=== PATIENT | female | born 1990 | race African-American/Black ===

== ENCOUNTER 2017-02-16 23:35 | Emergency (ER) | payer SELFPAY ==
[2017-02-17 00:05] VITALS: BP 108/79
--- NOTE | 2017-02-17 01:22 | ER Document Report ---
ED Hand/Wrist Injury - General Chief Complaint: Finger Injury Stated Complaint: FINGER/HAND SWELLING Time Seen by Provider: 02/17/17 00:45 Mode of Arrival: Ambulatory Information source: Patient Notes: Patient is a 26-year-old black female comes to emergency room complaining of right middle finger pain and discomfort. Patient states her pain discomfort started about 2 days ago and has progressively gotten worse. States that today she went to bed in the throbbing on the middle finger causes her to wake up and she could not go back to sleep. Patient gives history that she does bite her fingernails and has done so ever since she was 5 years old and she has been pulling at her hangnails on that hand as well. She is also use a cuticle cardboard cutter the past. She denies any known injury to this time. Complaint mostly is of the left middle finger tip. And the discomfort and pain seems to surround the tip and the nailbed. TRAVEL OUTSIDE OF THE [place] IN LAST 30 DAYS: No - HPI Injury to: Middle finger Onset: Other - 2 days Where: Other - Unknown Timing: Constant Quality of pain: Sharp, Throbbing Severity: Moderate Pain Level: 3 Context: Other - Denies known trauma but bites fingernails. - Related Data Allergies/Adverse Reactions: No Known Allergies Allergy (Unverified 02/17/17 00:05) Past Medical History - General Information source: Patient Last Menstrual Period: January 24 - Social History Smoking Status: Current Every Day Smoker Cigarette use (# per day): Yes - States she stopped smoking 1 week ago and only does vapor cigarettes curren Smoking Education Provided: Yes Frequency of alcohol use: Rare Drug Abuse: None Occupation: Currently unemployed/medical leave Lives with: Family Family History: None Patient has suicidal ideation: No Patient has homicidal ideation: No - Medical History Medical History: Negative Renal/ Medical History: Denies: Hx Peritoneal Dialysis Review of Systems - Review of Systems Constitutional: No symptoms reported EENT: No symptoms reported Cardiovascular: No symptoms reported Respiratory: No symptoms reported Gastrointestinal: No symptoms reported Genitourinary: No symptoms reported Female Genitourinary: No symptoms reported Musculoskeletal: No symptoms reported Skin: Other - Swelling with edema Hematologic/Lymphatic: No symptoms reported Neurological/Psychological: No symptoms reported -: Yes All other systems reviewed and negative Physical Exam - Vital signs Vitals: Temp Pulse Resp BP Pulse Ox 98.4 F 92 18 108/79 98 02/17/17 00:02 02/17/17 00:02 02/17/17 00:02 02/17/17 00:02 02/17/17 00:02 Interpretation: Normal - General General appearance: Alert - HEENT Head: Normocephalic, Atraumatic - Respiratory Respiratory status: No respiratory distress Breath sounds: Normal Chest palpation: Normal - Cardiovascular Heart sounds: Normal auscultation Murmur: No - Abdominal Inspection: Normal - Extremities General upper extremity: Tender, Edema, Normal ROM, Normal strength, Normal temperature Hand: Tender, No evidence of FB, Other - Examination of patient's right middle finger shows that she has some moderate edema to the distal tip in the pad area. She also has some mild swelling around the inferior portion of the nailbed. Presentation is similar to a paronychia however there is no overt pus that is seen on examination. Patient has tenderness to palpation of the distal tip of the right middle finger she does have good cap refill in the nail bed. She also has full range of motion in all fingers of the right hand. Noted to is a hangnail that is on the lateral side of the nailbed on the distal portion of the right middle finger looks apparently as if she is tried to bite it off. There is some erythema noted increased on that side. - Neurological Neuro grossly intact: Yes Cognition: Normal Orientation: AAOx4 Angier Coma Scale Eye Opening: Spontaneous Angier Coma Scale Verbal: Oriented Murali Coma Scale Motor: Obeys Commands Angier Coma Scale Total: 15 Speech: Normal - Skin Irregularity with: Swelling, Tenderness, Inflammation, Other - See description hand/finger area Course - Re-evaluation Re-evalutation: 02/17/17 01:26 Patient reevaluation shows her to be no change at this time. On examination I found nothing that I could I&D at this time. I have had a long discussion with patient that she should continue to use warm compresses or warm soapy soaks and to quit picking at the areas. I have informed her to return tomorrow for a recheck especially if swelling gets worse. I am given her a shot of Rocephin here and I am giving also oral antibiotics. We are also covering the area with a Band-Aid and applying Neosporin and a finger splint. - Vital Signs Vital signs: Temp Pulse Resp BP Pulse Ox 98.4 F 92 18 108/79 98 02/17/17 00:02 02/17/17 00:02 02/17/17 00:02 02/17/17 00:02 02/17/17 00:02 Procedures - Immobilization Right Distal 3rd digit Pre-Proc Neuro Vasc Exam: Normal Immobilizer type: Finger protection Performed by: PCT Post-Proc Neuro Vasc Exam: Normal Alignment checked and good: Yes Discharge - Discharge Clinical Impression: Cellulitis of left middle finger, Paronychia Condition: Stable Disposition: HOME, SELF-CARE Instructions: Cellulitis ([facility]), Paronychia ([facility]) Additional Instructions: Home rest. Start oral medications as soon as you can. Take all of the antibiotics that are prescribed. As we discussed when to soak the finger in warm water soaks at least 3 times a day. As we discussed if the finger should increase in size or swelling or have any concerns return to ER tomorrow for a recheck. Use the splint for the next couple of days in order to protect it from banging around. Prescriptions: Ibuprofen 600 mg PO TID PRN #30 tablet PRN Reason: Pain swelling Sulfamethoxazole/Trimethoprim [Bactrim Ds Tablet] 1 each PO BID #20 tablet Forms: Elevated Blood Pressure
[2017-02-17] MEDS ORDERED: CEFTRIAXONE INJ 1000 MG VIAL IM ONE (01:29)
[2017-02-17] MEDS ORDERED: HYDROCODONE/ACETAMINOPHEN 5-325 MG TABLET PO ONE (01:30)
[2017-02-17] MEDS ORDERED: LIDOCAINE 1% INJ (10 MG/ML) 10 ML MDV INJ ONE (01:40)
[2017-02-17] MEDS ORDERED: LIDOCAINE 1% INJ-PF (10 MG/ML) 30 ML SDV ONE (01:42)
--- NOTE | 2017-02-17 01:50 | RADIOLOGY REPORT (SQ) ---
EXAM DESCRIPTION: FINGER RIGHT COMPLETED DATE/TIME: 02/17/2017 1:08 am REASON FOR STUDY: rt 3rd digit pain/swelling COMPARISON: None. NUMBER OF VIEWS: Three views. TECHNIQUE: AP, lateral, and oblique images acquired of the right third finger. LIMITATIONS: None. FINDINGS: MINERALIZATION: Normal. BONES: No acute fracture or dislocation. No worrisome bone lesions. SOFT TISSUES: No soft tissue swelling. No foreign body. OTHER: No other significant finding. IMPRESSION: NO RADIOGRAPHIC EVIDENCE OF ACUTE INJURY. COMMENT: SITE OF TRAUMA/COMPLAINT MARKED/STAMP COMPLETED: YES. TECHNICAL DOCUMENTATION: JOB ID: [id number] [employer]- All Rights Reserved
== END 2017-02-17 02:03 | disposition home or self-care (01) ==
LOC: ER 23:35
DX: S69.91XA Unspecified injury of right wrist, hand and finger(s), initial encounter (principal); L03.012 Cellulitis of left finger; X58.XXXA Exposure to other specified factors, initial encounter; F17.200 Nicotine dependence, unspecified, uncomplicated
CPT/HCPCS: 99283; 96372; 73140; J0696

== ENCOUNTER 2017-05-04 16:16 | Emergency (ER) | payer SELFPAY ==
--- NOTE | 2017-05-04 20:51 | ER Document Report ---
HPI - HPI Patient complains to provider of: Headache Onset: Other - 3 days Onset/Duration: Waxing and waning, Gone Severity: Severe Pain Level: 0 Context: Patient presents complaining of headache off and on for the past 3 days. Patient states she has a history of cluster headaches and this is typical of her usual cluster headaches. Patient states that she will typically have the headaches for about 3 hours and then the symptoms will resolve for anywhere from 30 minutes to a few hours. Patient does report vomiting 2 episodes today which prompted her visit today. Patient states that she was at work and requires a note for her employer. Patient denies any fever, head injury, neck or back pain. Patient has not gotten established with a neurologist here in town. Patient states that she has used sumatriptan in the past to help her symptoms but does not have any at home at this time. Patient presently denies any headache pain at this time. Associated Symptoms: Headache, Nausea, Vomiting Exacerbated by: Denies Relieved by: Denies Similar symptoms previously: Yes Recently seen / treated by doctor: No - ROS ROS below otherwise negative: Yes Systems Reviewed and Negative: Yes All other systems reviewed and negative - CONSTITUTIONAL Constitutional: DENIES: Fever, Chills - NEURO Neurology: REPORTS: Headache. DENIES: Weakness, Vision blurred - GASTROINTESTINAL Gastrointestinal: REPORTS: Nausea, Patient vomiting. 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 IN LAST 30 DAYS: No - HEENT HEENT: Atraumatic, Normal ENT Exam, Normocephalic - NECK Neck: Normal Inspection, Supple Notes: No meningismus - RESPIRATORY Respiratory: Breath Sounds Normal, No Respiratory Distress O2 Sat by Pulse Oximetry: 100 - CARDIOVASCULAR Cardiovascular: Regular Rate, Regular Rhythm, No Murmur - BACK Back: Normal Inspection Notes: No spinal midline tenderness - MUSCULOSKELETAL/EXTREMETIES Musculoskeletal/Extremeties: CHRISTIAN ROMERO - NEURO Level of Consciousness: Awake, Alert, Appropriate Motor/Sensory: No Motor Deficit - DERM Integumentary: Warm, Dry, No Rash Course - Re-evaluation Re-evalutation: 05/04/17 20:[address] Wright regarding patient presentation, advises discharging patient with sumatriptan as this has worked for her in the past. The patient presents with headache without signs of SOLE LEVELER bleed, stroke, infection , or other serious etiology. The patient is neurologically intact. Given the extremely low risk of these diagnoses further testing and evaluation for these possibilities does not appear to be indicated at this time. The patient has been instructed to return if the symptoms worsen or change in any way. - Vital Signs Vital signs: Temp Pulse Resp BP Pulse Ox 98.7 F 57 L 14 115/64 100 05/04/17 16:19 05/04/17 16:19 05/04/17 16:19 05/04/17 16:19 05/04/17 16:19 Discharge - Discharge Clinical Impression: History of cluster headache, Nausea Condition: Stable Disposition: HOME, SELF-CARE Instructions: Antinausea Medication ([facility]), Headache ([facility]) Additional Instructions: Return immediately for any new or worsening symptoms Followup with your primary care provider, call tomorrow to make a followup appointment Follow-up with a neurologist for further evaluation. Prescriptions: Promethazine HCl [Phenergan 25 mg Tablet] 25 mg PO Q6H PRN #12 tablet PRN Reason: Sumatriptan Succinate 50 mg PO ASDIR PRN #4 tablet PRN Reason: Forms: Smoking Cessation Education, Return to Work Referrals: DIAN MOSLEY MD [Primary Care Provider] - Follow up tomorrow
[2017-05-04 20:58] VITALS: BP 107/67
== END 2017-05-04 20:58 | disposition home or self-care (01) ==
LOC: ER 16:16
DX: R51 Headache (principal); R11.2 Nausea with vomiting, unspecified; F17.200 Nicotine dependence, unspecified, uncomplicated
CPT/HCPCS: 99283

== ENCOUNTER 2018-03-24 19:06 | Emergency (ER) | payer OTHER, BC ==
[2018-03-24 19:13] VITALS: BP 114/68
[2018-03-24] MEDS ORDERED: DEXAMETHASONE SOD PHOS INJ 10 MG/1 ML VIAL IM ONE (19:26)
--- NOTE | 2018-03-24 19:27 | ER Document Report ---
ED General - General Chief Complaint: Allergic Reaction Stated Complaint: ALLERGIC REACTION Time Seen by Provider: 03/24/18 19:17 Notes: Patient is a 27-year-old female that presents to the emergency department for chief complaint of allergic reaction. Patient states that about 1 hour ago she ate a chicken taco, she thinks may have been cooked in peanut oil, she has a severe peanut allergy, she had some throat tingling, and abdominal pain initially, she took 2 Benadryl, at that time, her symptoms for her have essentially completely resolved, she does not feel any tongue swelling or throat swelling or throat itching. Denies having any shortness of breath or difficulty breathing, she has mild cramping in her abdomen, but denies having any rashes or any other symptoms. She is very familiar with anaphylaxis, she does carry an EpiPen, and has been dealing with allergies her entire life, and states that she feels very well at this time, and is not concerned that she is going through a severe reaction. She denies any other complaints at this time. Past Medical History: Significant environmental allergies Past Surgical History: Appendectomy Social History: Admits to smoking cigarettes daily, and occasional alcohol use, denies illicit drug use. Family History: Reviewed and noncontributory for presenting illness Allergies: Reviewed, see documented allergy list. REVIEW OF SYSTEMS: Other than noted above, the 12 point review of systems was reviewed with the patient and were negative, all pertinent findings are included in the HPI. PHYSICAL EXAMINATION: Vital signs reviewed, nursing noted reviewed. GENERAL: Well-appearing, well-nourished and in no acute distress. HEAD: Atraumatic, normocephalic. EYES: Eyes appear normal, extraocular movements intact, sclera anicteric, conjunctiva are normal. ENT: nares patent, oropharynx clear without exudates. Moist mucous membranes. No uvular edema, uvula is midline, no tongue edema appreciated. NECK: Normal range of motion, supple without lymphadenopathy LUNGS: Breath sounds clear to auscultation bilaterally and equal. No wheezes rales or rhonchi. HEART: Regular rate and rhythm without murmurs ABDOMEN: Soft, nontender, normoactive bowel sounds. No rebound, guarding, or rigidity. No masses appreciated. EXTREMITIES: Nontender, good range of motion, no pitting or edema. NEUROLOGICAL: No focal neurological deficits. Moves all extremities spontaneously Motor and sensory grossly intact on exam. PSYCH: Normal mood, normal affect. SKIN: Warm, Dry, normal turgor, no rashes or lesions noted on exposed skin TRAVEL OUTSIDE OF THE [place] IN LAST 30 DAYS: No - Related Data Allergies/Adverse Reactions: tree nut Allergy (Verified 03/24/18 19:19) PEANUT BUTTER Allergy (Uncoded 05/04/17 16:17) Past Medical History - Social History Smoking Status: Current Every Day Smoker Chew tobacco use (# tins/day): No Frequency of alcohol use: Social Drug Abuse: None Family History: None Patient has suicidal ideation: No Patient has homicidal ideation: No Neurological Medical History: Reports: Hx Migraine - cluster cifuentes Renal/ Medical History: Denies: Hx Peritoneal Dialysis Psychiatric Medical History: Reports: Hx Bipolar Disorder, Hx Depression Past Surgical History: Reports: Hx Appendectomy Physical Exam - Vital signs Vitals: Temp Pulse Resp BP Pulse Ox 98.5 F 57 L 16 114/68 97 03/24/18 19:12 03/24/18 19:12 03/24/18 19:12 03/24/18 19:12 03/24/18 19:12 Course - Re-evaluation Re-evalutation: Patient appears well on exam, no acute evidence of anaphylaxis at this time, patient received Benadryl naproxen 1 hour ago and after ingestion of possible peanut oil, patient is seemingly doing quite well, she did not have to use her EpiPen, she states that she knows how she feels when she has a severe reaction, and she feels quite well does not believe that is occurring at this time. Patient was given 10 mg of IM Decadron, and advised to take Benadryl when she gets home. She is advised to monitor her symptoms, for possible delayed anaphylaxis, and if her symptoms worsen or return in the next hour or more even tomorrow that she should use her EpiPen if they became severe and to return to the emergency department, patient was agreeable to this plan of care. - Vital Signs Vital signs: Temp Pulse Resp BP Pulse Ox 98.5 F 57 L 16 114/68 97 03/24/18 19:12 03/24/18 19:12 03/24/18 19:12 03/24/18 19:12 03/24/18 19:12 Discharge - Discharge Clinical Impression: Allergic reaction Qualifiers: Encounter type: initial encounter Qualified Code(s): T78.40XA - Allergy, unspecified, initial encounter Condition: Stable Disposition: HOME, SELF-CARE Instructions: Acute Allergic Reaction ([facility]) Additional Instructions: Please take 50 mg of Benadryl when you get home before you go to bed, if he develops signs of difficulty breathing, or feel lightheaded or like you are going to pass out or have vomiting or severe abdominal pain or throat swelling please return to the emergency department. Referrals: DIAN MOSLEY MD [ACTIVE STAFF] - Follow up in 3-5 days
== END 2018-03-24 19:45 | disposition home or self-care (01) ==
LOC: ER 19:06
DX: T78.40XA Allergy, unspecified, initial encounter (principal); R09.89 Other specified symptoms and signs involving the circulatory and respiratory systems; R10.9 Unspecified abdominal pain; X58.XXXA Exposure to other specified factors, initial encounter; F17.210 Nicotine dependence, cigarettes, uncomplicated; Z91.040 Latex allergy status; Z91.018 Allergy to other foods
CPT/HCPCS: 99283; 96372; J1100

== ENCOUNTER 2018-07-28 22:18 | Emergency (ER) | payer BC ==
[2018-07-29 00:19] LABS: APPEARANCE,URINE CLEAR; BILIRUBIN,URINE NEGATIVE (NEGATIVE); COLOR,URINE YELLOW; GLUCOSE, URINE NEGATIVE (NEGATIVE); KETONES,URINE NEGATIVE (NEGATIVE); LEUKOCYTE ESTERASE,URINE NEGATIVE (NEGATIVE); NITRITE,URINE NEGATIVE (NEGATIVE); PROTEIN,URINE 30 mg/dL (NEGATIVE); URINE SPECIFIC GRAVITY 1.032
[2018-07-29 01:21] LABS: ALANINE AMINOTRANSFERASE 21 U/L (9-52); ALBUMIN 4.1 g/dL (3.5-5.0); ALKALINE PHOSPHATASE 62 U/L (38-126); ANION GAP 6 (5-19); ASPARTATE AMINO TRANSFERASE 21 U/L (14-36); BILIRUBIN,DIRECT 0.2 mg/dL (0.0-0.4); BILIRUBIN,TOTAL 0.5 mg/dL (0.2-1.3); BLOOD UREA NITROGEN 18 mg/dL (7-20); CALCIUM 9.8 mg/dL (8.4-10.2); CARBON DIOXIDE 29 mmol/L (22-30); CHLORIDE 107 mmol/L (98-107); GLUCOSE 91 mg/dL (75-110); POTASSIUM 4.1 mmol/L (3.6-5.0); TOTAL PROTEIN 7.2 g/dL (6.3-8.2)
[2018-07-29 01:28] LABS: ABSOLUTE BASOPHILS # (AUTO) 0.1 10^3/uL (0.0-0.2); ABSOLUTE EOSINOPHILS # (AUTO) 0.4 10^3/uL (0.0-0.6); ABSOLUTE LYMPHOCYTES (AUTO) 4.1 10^3/uL (0.5-4.7); ABSOLUTE MONOCYTES (AUTO) 0.5 10^3/uL (0.1-1.4); ABSOLUTE NEUT (AUTO) 3.3 10^3/uL (1.7-8.2); BASOPHILS % (AUTO) 1.2 % (0-2); HEMATOCRIT 37.6 % (36.0-47.0); HEMOGLOBIN 12.6 g/dL (12.0-15.5); LYMPHOCYTES % (AUTO) 48.5 % (13-45); MEAN CORPUSCULAR HEMOGLOBIN 28.6 pg (27.0-33.4); MEAN CORPUSCULAR HGB CONC 33.4 g/dL (32.0-36.0); MEAN CORPUSCULAR VOLUME 86 fl (80-97); MONOCYTES % (AUTO) 6.2 % (3-13); PLATELET COUNT 361 10^3/uL (150-450); RED CELL DISTRIBUTION WIDTH 13.5 % (11.5-14.0); SEGMENTED NEUTROPHILS % (AUTO) 39.1 % (42-78); TOTAL CELLS COUNTED % (AUTO) 100 %; WHITE BLOOD COUNT 8.4 10^3/uL (4.0-10.5)
[2018-07-29] MEDS ORDERED: ACETAMINOPHEN 325 MG TABLET PO ONE (01:31)
[2018-07-29] MEDS ORDERED: KETOROLAC TROMETHAMINE 60 MG/2 ML SDV IM ONE (01:31)
--- NOTE | 2018-07-29 01:31 | ER Document Report ---
ED General - General Chief Complaint: Abdominal Pain Stated Complaint: LOWER PELVIC PAIN Time Seen by Provider: 07/28/18 23:26 Notes: Patient is a 28-year-old female without chronic medical problems, prior surgical history of an appendectomy presents due to several weeks of progressively worsening pain in her lower pelvis although has become much more intense in the past several days. Patient describes the pain as being gradual in onset, i ntermittent in its intensity ranging from mild to severe and as being a cramping, stabbing pain generally to just above the pubis symphysis. Denies history of similar symptoms in the past. Has had some associated vaginal spotting but denies heavy vaginal bleeding or vaginal discharge. She denies fever or constitutional symptoms. She has not seen her [facility] regarding today's concerns. Denies a history of similar symptoms prior to the past several weeks. TRAVEL OUTSIDE OF THE [place] IN LAST 30 DAYS: No - Related Data Allergies/Adverse Reactions: tree nut Allergy (Verified 07/28/18 22:22) PEANUT BUTTER Allergy (Uncoded 07/28/18 22:22) Past Medical History - General Information source: Patient - Social History Smoking Status: Never Smoker Frequency of alcohol use: None Drug Abuse: None Lives with: Family Family History: Reviewed & Not Pertinent Neurological Medical History: Reports: Hx Migraine - cluster cifuentes Renal/ Medical History: Denies: Hx Peritoneal Dialysis Psychiatric Medical History: Reports: Hx Bipolar Disorder, Hx Depression Past Surgical History: Reports: Hx Appendectomy Review of Systems - Review of Systems Notes: Constitutional: Negative for fever. HENT: Negative for sore throat. Eyes: Negative for visual changes. Cardiovascular: Negative for chest pain. Respiratory: Negative for shortness of breath. Gastrointestinal: Positive for abdominal pelvic cramping Genitourinary: Negative for dysuria. Musculoskeletal: Negative for back pain. Skin: Negative for rash. Neurological: Negative for headaches, weakness or numbness. 10 point ROS negative except as marked above and in HPI. Physical Exam - Vital signs Vitals: Temp Pulse Resp BP Pulse Ox 98.4 F 65 16 102/65 97 07/28/18 22:30 07/28/18 22:30 07/28/18 22:30 07/28/18 22:30 07/28/18 22:30 Interpretation: Normal Notes: PHYSICAL EXAMINATION: GENERAL: Well-appearing, well-nourished and in no acute distress. HEAD: Atraumatic, normocephalic. EYES: Pupils equal round and reactive to light, extraocular movements intact, sclera anicteric, conjunctiva are normal. ENT: nares patent, oropharynx clear without exudates. Moist mucous membranes. NECK: Normal range of motion, supple without lymphadenopathy LUNGS: Breath sounds clear to auscultation bilaterally and equal. No wheezes rales or rhonchi. HEART: Regular rate and rhythm without murmurs ABDOMEN: Soft, nontender, normoactive bowel sounds. No guarding, no rebound. No masses appreciated. : Minimal visible strings from IUD. Scant discharge from the cervical office. No cervical motion tenderness. No adnexal tenderness. Mild to pubic abdominal discomfort. EXTREMITIES: Normal range of motion, no pitting or edema. No cyanosis. NEUROLOGICAL: No focal neurological deficits. Moves all extremities spontaneously and on command. PSYCH: Normal mood, normal affect. SKIN: Warm, Dry, normal turgor, no rashes or lesions noted. Course - Re-evaluation Re-evalutation: 07/29/18 01:28 Patient presents with lower abdominal discomfort for the past 4-5 days although notes that it has been ongoing for several weeks. On exam patient has no focal abdominal tenderness, rebound or guarding. On pelvic exam the patient has a very short IUD strings with almost no visible string at the cervical office. The patient did request IUD removal which was completed without difficulty. Patient did have significant relief of her discomfort thereafter. She did have some mild vaginal discharge. Gonorrhea and Chlamydia screens are pending. Exam not consistent with pelvic inflammatory disease or TOA. No indication for ultrasound. Labs otherwise unremarkable. At this time will discharge with return precautions and follow-up recommendations. Verbal discharge instructions given a the bedside and opportunity for questions given. Medication warnings reviewed. Patient is in agreement with this plan and has verbalized understanding of return precautions and the need for primary care follow-up in the next 24-72 hours. - Vital Signs Vital signs: Temp Pulse Resp BP Pulse Ox 98.4 F 65 16 102/65 97 07/28/18 22:30 07/28/18 22:30 07/28/18 22:30 07/28/18 22:30 07/28/18 22:30 - Laboratory Result Diagrams: 07/29/18 00:55 07/29/18 00:55 Laboratory results interpreted by me: 07/28/18 23:35 Urine Protein 30 H Urine Urobilinogen 4.0 H Discharge - Discharge Clinical Impression: Pelvic pain, Encounter for IUD removal Pain due to intrauterine contraceptive device (IUD) Qualifiers: Encounter type: initial encounter Qualified Code(s): T83.84XA - Pain due to genitourinary prosthetic devices, implants and grafts, initial encounter Condition: Good Disposition: HOME, SELF-CARE Additional Instructions: Please return to emergency department if you have worsening pain, fever greater than 100.4 F, vomiting, bleeding through more than 2 pads an hour for more than 2 hours in a row, of heavy vaginal discharge, or develop any other symptoms that are worrisome to you. Please follow-up with [facility] regarding today's visit. Forms: Return to Work
[2018-07-29 01:46] LABS: RBCS (WET MOUNT) NO RBCS SEEN; T.VAGINALIS (WET MOUNT) NO TRICHOMONAS SEEN; WBCS (WET MOUNT) NO WBCS SEEN; YEAST (WET MOUNT) NO YEAST SEEN
[2018-07-29 01:51] VITALS: BP 98/62
[2018-07-29 03:12] LABS: CHLAM PCR NOT DETECTED (NOT DETECT); GON PCR NOT DETECTED (NOT DETECT)
== END 2018-07-29 01:52 | disposition home or self-care (01) ==
LOC: ER 22:18
DX: R10.2 Pelvic and perineal pain (principal); T83.84XA Pain due to genitourinary prosthetic devices, implants and grafts, initial encounter; X58.XXXA Exposure to other specified factors, initial encounter; Z91.010 Allergy to peanuts
CPT/HCPCS: 99284; 96372; 36415; 87210; 85025; 81025; 80053; 81001; 87491; 87591; J1885

== ENCOUNTER 2019-06-05 16:26 | Outpatient (CLI) | payer MEDICAID ==
--- NOTE | 2019-06-05 19:32 | Non Stress Test Report ---
Non Stress Test Datetime Report Generated by CPN: 06/05/2019 19:32 DEMOGRAPHIC EGA NST: 35.0 MONITORING Monitor Explained: Monitor Explained; Test Explained; Patient Verbalized Understanding Time on Monitor: 06/05/2019 16:50 Time off Monitor: 06/05/2019 17:24 NST Duration: 34 NST INTERVENTIONS NST Interventions: PO Hydration; Reposition Patient Physician Notified NST: Dr Echols BABY A: [id number] BABY A Movement : Present Contraction Frequency : occasional FHR Baseline : 145 Accelerations : 15X15 Decelerations : None Variability : Moderate 6-25bpm NST Review: Meets Criteria for Reactive NST NST Review and Verified By : JORGE Taylor Results: Reactive NST REPORT Report Trigger: Send Report
== END 2019-06-05 17:30 | disposition home or self-care (01) ==
LOC: LC 16:26
PROVIDERS: ATTEND Obstetrics & Gynecology
PROC: 4A1HXCZ Monitoring of Products of Conception, Cardiac Rate, External Approach (ICD-10-PCS; principal; 2019-06-05)
DX: O24.419 Gestational diabetes mellitus in pregnancy, unspecified control (principal); Z3A.35 35 weeks gestation of pregnancy
CPT/HCPCS: 59025

== ENCOUNTER 2019-06-09 16:13 | Inpatient (IN) | payer MEDICAID ==
[2019-06-09 16:50] LABS: APPEARANCE,URINE CLOUDY; BILIRUBIN,URINE NEGATIVE (NEGATIVE); COLOR,URINE AMBER; GLUCOSE, URINE NEGATIVE (NEGATIVE); KETONES,URINE 80 mg/dL (NEGATIVE); LEUKOCYTE ESTERASE,URINE TRACE (NEGATIVE); NITRITE,URINE NEGATIVE (NEGATIVE); PROTEIN,URINE 100 mg/dL (NEGATIVE); URINE SPECIFIC GRAVITY 1.034
[2019-06-09] MEDS ORDERED: RINGERS SOLUTION,LACTATED 1,000 ML IV ONE ×2 (17:05→18:01)
[2019-06-09] MEDS ORDERED: RINGERS SOLUTION,LACTATED 1,000 ML IV PRN ×2 (17:05→18:02)
[2019-06-09] MEDS ORDERED: ONDANSETRON HCL INJ/PF 4 MG/2 ML SDV IV PRN (17:14)
[2019-06-09 17:16] LABS: ABSOLUTE EOSINOPHILS # (AUTO) 0.1 10^3/uL (0.0-0.6); ABSOLUTE LYMPHOCYTES (AUTO) 0.5 10^3/uL (0.5-4.7); ABSOLUTE MONOCYTES (AUTO) 0.4 10^3/uL (0.1-1.4); ABSOLUTE NEUT (AUTO) 7.6 10^3/uL (1.7-8.2); BASOPHILS % (AUTO) 0.4 % (0-2); EOSINOPHILS % (AUTO) 1.3 % (0-6); HEMATOCRIT 32.3 % (36.0-47.0); HEMOGLOBIN 10.9 g/dL (12.0-15.5); LYMPHOCYTES % (AUTO) 6.1 % (13-45); MEAN CORPUSCULAR HEMOGLOBIN 27.1 pg (27.0-33.4); MEAN CORPUSCULAR HGB CONC 33.6 g/dL (32.0-36.0); MEAN CORPUSCULAR VOLUME 81 fl (80-97); MONOCYTES % (AUTO) 4.2 % (3-13); PLATELET COUNT 333 10^3/uL (150-450); RED CELL DISTRIBUTION WIDTH 14.6 % (11.5-14.0); TOTAL CELLS COUNTED % (AUTO) 100 %; WHITE BLOOD COUNT 8.6 10^3/uL (4.0-10.5)
[2019-06-09] MEDS ORDERED: CEFTRIAXONE INJ 1000 MG VIAL ONE (17:16)
[2019-06-09] MEDS ORDERED: ACETAMINOPHEN 325 MG TABLET ONE ×2 (17:16→23:31)
[2019-06-09] MEDS ORDERED: ONDANSETRON HCL INJ/PF 4 MG/2 ML SDV ONE ×2 (17:17→20:26)
[2019-06-09 17:23] LABS: URINE AMPHETAMINES SCREEN NEGATIVE; URINE BARBITURATES SCREEN NEGATIVE; URINE BENZODIAZEPINES SCREEN NEGATIVE; URINE COCAINE SCREEN NEGATIVE; URINE MARIJUANA (THC) SCREEN NEGATIVE; URINE METHADONE SCREEN NEGATIVE; URINE PHENCYCLIDINE SCREEN NEGATIVE
[2019-06-09 17:38] LABS: A TYPE INFLUENZA AG POSITIVE (NEGATIVE); B INFLUENZA AG NEGATIVE (NEGATIVE)
[2019-06-09 17:38] LABS: ALBUMIN 3.6 g/dL (3.5-5.0); ALKALINE PHOSPHATASE 241 U/L (38-126); ANION GAP 9 (5-19); ASPARTATE AMINO TRANSFERASE 22 U/L (14-36); BILIRUBIN,TOTAL 0.6 mg/dL (0.2-1.3); BLOOD UREA NITROGEN 6 mg/dL (7-20); CALCIUM 8.8 mg/dL (8.4-10.2); CARBON DIOXIDE 21 mmol/L (22-30); CHLORIDE 103 mmol/L (98-107); GLUCOSE 82 mg/dL (75-110); TOTAL PROTEIN 6.8 g/dL (6.3-8.2)
--- NOTE | 2019-06-09 17:55 | RADIOLOGY REPORT (SQ) ---
EXAM DESCRIPTION: CHEST SINGLE VIEW COMPLETED DATE/TIME: 06/09/2019 5:44 pm REASON FOR STUDY: SOB, cough COMPARISON: None. EXAM PARAMETERS: NUMBER OF VIEWS: One view. TECHNIQUE: Single frontal radiographic view of the chest acquired. RADIATION DOSE: NA LIMITATIONS: None. FINDINGS: LUNGS AND PLEURA: No opacities, masses or pneumothorax. No pleural effusion. MEDIASTINUM AND HILAR STRUCTURES: No masses. Contour normal. HEART AND VASCULAR STRUCTURES: Heart normal in size. Normal vasculature. BONES: No acute findings. HARDWARE: None in the chest. OTHER: No other significant finding. IMPRESSION: NO ACUTE RADIOGRAPHIC FINDING IN THE CHEST. TECHNICAL DOCUMENTATION: JOB ID: [id number] [employer]- All Rights Reserved Reading location - IP/workstation name: [employer]
[2019-06-09] MEDS ORDERED: DEXTROSE 50%-WATER 25 GM/50 ML DISP.SYRIN IV PRN ×2 (18:00)
[2019-06-09] MEDS ORDERED: DEXTROSE 40% GEL 15 GM TUBE PO PRN ×2 (18:00)
[2019-06-09] MEDS ORDERED: GLUCAGON,HUMAN RECOMB 1 MG INJ IM PRN (18:00)
[2019-06-09] MEDS ORDERED: LEVALBUTEROL HCL NEB 1.25 MG/3 ML AMPUL NEB PRN (18:09)
[2019-06-09] MEDS ORDERED: GUAIFENESIN SYRP 200 MG/10 ML UDC PO PRN (18:11)
[2019-06-09 18:19] LABS: CHLAM PCR NOT DETECTED (NOT DETECT)
[2019-06-09] MEDS: ACETAMINOPHEN 325 MG TABLET PO SCH ×2 (18:36→23:33)
[2019-06-09] MEDS: CEFTRIAXONE 1 GM/D5W RTU 1 GM/50 ML RTUPB IV SCH (18:36)
[2019-06-09] MEDS ORDERED: FAMOTIDINE 20 MG TABLET ONE (18:49)
[2019-06-09] MEDS: FAMOTIDINE 20 MG TABLET PO SCH ×2 (18:50→22:03)
--- NOTE | 2019-06-09 18:53 | PDOC CONSULTATION ---
Consultation Consult Date: 06/09/19 Attending physician:: FRANNY RIVAS Provider Consulted: KAVON HARMON Consult reason:: Flu symptoms History of Present Illness Admission Date/PCP: FRANNY RIVAS MD Patient complains of: Fever, shortness of breath History of Present Illness: JENN BELLAMY is a 29 year old female with a past medical history significant for depression, bipolar, gestational diabetes, who is and approximately 34 weeks EGA who presented with complaint of 1 day of generalized malaise, fatigue, myalgia, pleuritic chest pain on deep inspiration and cough, productive cough, subjective fever/chills, and shortness of breath. She reports onset of nausea and vomiting today; has not been able to tolerate p.o. fluids. Of note, 1 of her immediate family members tested flu positive this week. Evaluation found the patient to be acutely ill-appearing, febrile (100.9), tachycardic (HR 120), tachypneic (RR 28), but fortunately with unremarkable CBC other than mild anemia, dehydration (mild hyponatremia, elevated bicarb, elevated specific gravity with urine protein, ketones), UDS is negative, Influenza A positive. Chest x-ray is read as negative for acute findings. On personal review, I am concerned about a possible developing consolidation to the right middle lobe. Patient is admitted to the SECRETARY SPECIALIST service with the hospitalist service consulted to assist. Past Medical History Cardiac Medical History: Reports: None Pulmonary Medical History: Reports: None EENT Medical History: Reports: None Neurological Medical History: Reports: Migraine - cluster cifuentes Endocrine Medical History: Reports: None Renal/ Medical History: Reports: None Malignancy Medical History: Reports: None GI Medical History: Reports: None Musculoskeltal Medical History: Reports: None Psychiatric Medical History: Reports: Bipolar Disorder, Depression Traumatic Medical History: Reports: None Hematology: Reports: None Past Surgical History Past Surgical History: Reports: Appendectomy Social History Information Source: Patient Lives with: Family Smoking Status: Never Smoker Electronic Cigarette use?: No Frequency of Alcohol Use: None Hx Recreational Drug Use: No Hx Prescription Drug Abuse: No - Advance Directive Resuscitation Status: Full Code Family History Family History: Reviewed & Not Pertinent Parental Family History Reviewed: Yes Children Family History Reviewed: Yes Sibling(s) Family History Reviewed.: Yes Medication/Allergy Home Medications: Lurasidone HCl [Latuda] 20 mg PO DAILY 06/05/19 Vit/Dha [ Multi + Dha Capsule] 1 cap PO DAILY 06/05/19 Sertraline HCl [Zoloft 50 mg Tablet] 50 mg PO DAILY 06/05/19 Allergies/Adverse Reactions: tree nut Allergy (Verified 06/05/19 19:35) PEANUT BUTTER Allergy (Uncoded 06/05/19 19:35) Review of Systems Constitutional: PRESENT: chills, fatigue, fever(s), headache(s). ABSENT: weight gain, weight loss Eyes: ABSENT: visual disturbances Ears: ABSENT: hearing changes Cardiovascular: ABSENT: chest pain, dyspnea on exertion, edema, orthropnea, palpitations Respiratory: PRESENT: cough, dyspnea, sputum. ABSENT: hemoptysis Gastrointestinal: PRESENT: nausea, vomiting. ABSENT: abdominal pain, constipation, diarrhea, hematemesis, hematochezia Genitourinary: ABSENT: dysuria, hematuria Musculoskeletal: ABSENT: joint swelling Integumentary: ABSENT: rash, wounds Neurological: ABSENT: abnormal gait, abnormal speech, confusion, dizziness, focal weakness, syncope Psychiatric: ABSENT: anxiety, depression, homidical ideation, suicidal ideation Endocrine: ABSENT: cold intolerance, heat intolerance, polydipsia, polyuria Hematologic/Lymphatic: ABSENT: easy bleeding, easy bruising Physical Exam General appearance: PRESENT: mild distress, well-developed, well-nourished, other - Acutely ill-appearing Head exam: PRESENT: atraumatic, normocephalic Eye exam: PRESENT: conjunctiva pink, EOMI, PERRLA. ABSENT: scleral icterus Ear exam: PRESENT: normal external ear exam Mouth exam: PRESENT: dry mucosa, tongue midline Respiratory exam: PRESENT: rhonchi, symmetrical, tachypnea, unlabored. ABSENT: rales, wheezes Cardiovascular exam: PRESENT: RRR, +S1, +S2, tachycardia - HR 120-130. ABSENT: diastolic murmur, rubs, systolic murmur Pulses: PRESENT: normal dorsalis pedis pul Vascular exam: PRESENT: normal capillary refill Extremities exam: PRESENT: full ROM. ABSENT: calf tenderness, clubbing, pedal edema Musculoskeletal exam: PRESENT: ambulatory Neurological exam: PRESENT: alert, awake, oriented to person, oriented to place, oriented to time, oriented to situation, CN II-XII grossly intact. ABSENT: mo tor sensory deficit Psychiatric exam: PRESENT: appropriate affect, normal mood. ABSENT: homicidal ideation, suicidal ideation Skin exam: PRESENT: dry, intact, warm, other - Diaphoretic. ABSENT: cyanosis, rash Results Laboratory Results: 06/09/19 17:08 06/09/19 06/09/19 16:40 17:08 WBC 8.6 RBC 4.00 Hgb 10.9 L Hct 32.3 L MCV 81 MCH 27.1 MCHC 33.6 RDW 14.6 H Plt Count 333 Seg Neutrophils % 88.0 H Urine Color LARISA Urine Appearance CLOUDY Urine pH 7.0 Ur Specific [place] 1.034 Urine Protein 100 H Urine Glucose (UA) NEGATIVE Urine Ketones 80 H Urine Blood NEGATIVE Urine Nitrite NEGATIVE Ur Leukocyte Esterase TRACE H Assessment and Plan - Diagnosis (1) Respiratory distress Is this a current diagnosis for this admission?: Yes Plan: Secondary to influenza A. Chest x-ray is read as negative for acute cardiopulmonary processes; a personal review, I am concerned about possibly developing right middle lobe consolidation. She is tachypneic with a respiratory rate 28-32, maintaining oxygen saturations in the mid 90s, with increased work of breathing and tachycardia. Admitted to the SECRETARY SPECIALIST service. Supplemental oxygen as needed to maintain saturations greater than 93%. She is empirically placed on IV azithromycin and Rocephin for treatment of a possible developing community-acquired pneumonia in the setting of influenza. Tamiflu for influenza. As needed nebulizer treatments. Robitussin as needed. Encourage pulmonary toilet with incentive spirometer and change of position. (2) Influenza A Is this a current diagnosis for this admission?: Yes Plan: Patient is admitted to the SECRETARY SPECIALIST service. Continue Tamiflu twice daily. Symptom management with supportive care; IV fluids, supplemental oxygen, as needed nebulizers, Robitussin. (3) Dehydration Is this a current diagnosis for this admission?: Yes Plan: Patient demonstrates evidence of dehydration with tachypnea, tachycardia, and dry mucous membranes. She is found to have Mild hyponatremia and an elevated bicarb. She has a high specific gravity, elevated bicarb, and high urine specific gravity with urine protein and ketones. She is provided a 2 L bolus (30 mL's per kilogram) followed by maintenance IV fluids. Encourage p.o. fluids. Follow-up chemistry. (4) Tachycardia Is this a current diagnosis for this admission?: Yes Plan: Secondary to #1-3. Patient's tachycardia appears to be trending downward with IV fluids. Discussed with Dr. Rivas; should the patient remain significantly tachycardic (heart rate >120s) following the 2nd L bolus, would recommend the patient be moved to a floor where telemetry monitoring for the mother is available. EKG is pending. (5) Nausea and vomiting Qualifiers: Vomiting Intractability: non-intractable Is this a current diagnosis for this admission?: Yes Plan: Secondary to acute illness. We will rehydrate with IV fluids. Antiemetics as needed. (6) Gestational diabetes Qualifiers: Gestational diabetes mellitus control: oral hypoglycemic-controlled Trimester: third trimester Qualified Code(s): O24.415 - Gestational diabetes mellitus in , controlled by oral hypoglycemic drugs Is this a current diagnosis for this admission?: Yes Plan: Patient utilizes glipizide for management at home. Recommend holding oral antihyperglycemic's while admitted. She is placed on a consistent carb diet. Accu-Cheks before meals and at bedtime with Humalog for sliding scale coverage. (7) tachycardia affecting management of mother Is this a current diagnosis for this admission?: Yes Plan: Management per SECRETARY SPECIALIST. IV fluids as above. - Time Time Spent with patient: 35 or more minutes Medications reviewed and adjusted accordingly: Yes Anticipated discharge: Home
[2019-06-09] MEDS ORDERED: AZITHROMYCIN INJ 500 MG VIAL IV ONE (19:09)
[2019-06-09] MEDS ORDERED: OSELTAMIVIR PHOSPHATE 75 MG CAPSULE ONE (19:33)
[2019-06-09] MEDS ORDERED: LIDOCAINE 5% (700 MG) TRANSDERMAL ADH..PATCH ONE (19:33)
[2019-06-09] MEDS: OSELTAMIVIR PHOSPHATE 75 MG CAPSULE PO SCH (19:36)
[2019-06-09] MEDS: LIDOCAINE 5% (700 MG) TRANSDERMAL ADH..PATCH TP SCH (19:36)
[2019-06-09] MEDS: AZITHROMYCIN 500 MG in DEXTROSE 5%-WATER 250 ML IV SCH (20:03)
[2019-06-09] MEDS ORDERED: HYDROMORPHONE HCL INJ/PF 2 MG/ML AMPULE IV ONE (20:11)
[2019-06-09] MEDS ORDERED: HYDROMORPHONE HCL INJ/PF 2 MG/ML AMPULE ONE (20:26)
[2019-06-09 20:27] LABS: APPEARANCE,URINE CLEAR; BILIRUBIN,URINE NEGATIVE (NEGATIVE); COLOR,URINE YELLOW; GLUCOSE, URINE NEGATIVE (NEGATIVE); KETONES,URINE 80 mg/dL (NEGATIVE); LEUKOCYTE ESTERASE,URINE NEGATIVE (NEGATIVE); NITRITE,URINE NEGATIVE (NEGATIVE); PROTEIN,URINE 30 mg/dL (NEGATIVE)
--- NOTE | 2019-06-09 21:17 | EKG REPORT ---
SEVERITY:- ABNORMAL ECG - SINUS TACHYCARDIA NONSPECIFIC T ABNORMALITIES, INFERIOR LEADS : Confirmed by: Musa Pace MD 09-Jun-2019 21:16:50
[2019-06-09] MEDS: INSULIN LISPRO 100 UNIT/ML 3 ML VIAL SUBCUT SCH (22:03)
[2019-06-10] MEDS ORDERED: HYDROMORPHONE HCL INJ/PF 2 MG/ML AMPULE IV ONE (01:42)
[2019-06-10] MEDS ORDERED: ACETAMINOPHEN 325 MG TABLET ONE (06:05)
[2019-06-10] MEDS ORDERED: CEFTRIAXONE INJ 1000 MG VIAL ONE (06:05)
[2019-06-10] MEDS: ACETAMINOPHEN 325 MG TABLET PO SCH ×3 (06:14→17:51)
[2019-06-10] MEDS: CEFTRIAXONE 1 GM/D5W RTU 1 GM/50 ML RTUPB IV SCH ×2 (06:15→17:51)
--- NOTE | 2019-06-10 07:26 | Admission Physical ---
Datetime Report Generated by CPN: 06/10/2019 07:26 CURRENT ADMISSION Chief Complaint: Illness; Other Chief Complaint Other: 35 yo Indication for Induction: Not Applicable Admit Impression : , Intrauterine Admit Plan: Admit to Unit ALLERGIES Medication Allergies: No Medication Allergies: tree nut (06/05/2019) Latex: No Latex Allergies OBSTETRICAL HISTORY EDC: 07/08/2019 00:00 : 4 Para: 3 Term: 3 : 0 SAB: 0 IAB: 0 Livin Gestational Diabetes: Yes Rh Sensitization: No Incompetent Cervix: No CHERISE: No Infertility: No ART Treatment: No Uterine Anomaly: No IUGR: No Hx Previous C/S: No Macrosomia: No Hx Loss/Stillborn: No PIH: No Hx : No Placenta Previa/Abruption: No Depression/PP Depression: No PTL/PROM: No Post Hemorrhage: No Current Procedures: Ultrasound; NST Obstetrical History Comments: G1 07/10/08 Postdates G2 - 03/10/11 Full Term G3 - 02/16/14 Full Term G4 - Current SEE RECORDS Alcohol: No Marijuana : No Cocaine: No Other Illicit Drugs: No Cigarettes: Never Smoker. [id number] MEDICAL HISTORY Diabetes: Yes Diabetes Type: Gestational Diabetes Blood Transfusion: No Pulmonary Disease (Asthma, TB): Yes Breast Disease: No Hypertension: No [employer] Surgery: No Heart Disease: No Hosp/Surgery: No Autoimmune Disorder: No Anesthetic Complications: No Kidney Disease: No Abnormal Pap Smear: No Neuro/Epilepsy: No Psychiatric Disorders: Yes Other Medical Diseases: No Hepatitis/Liver Disease: No Significant Family History: No Varicosities/Phlebitis: No Trauma/Violence : No Thyroid Dysfunction: No Medical History Comments: bipolar, asthma, anxiety INFECTIOUS HISTORY Gonorrhea: No Genital Herpes: No Chlamydia: No Tuberculosis: No Syphilis: No Hepatitis: No HIV/AIDS Exposure: No Rash or Viral Illness: No HPV: No PHYSICAL EXAM General: Normal HEENT: Normal Neurologic: Normal Thyroid: Deferred Heart: Normal Lungs: Normal Breast: Deferred Back: Normal Abdomen: Normal Genitourinary Exam: Normal Extremities: Normal DTRs: Normal Pelvic Type: Adequate Vital Signs: Reviewed VAGINAL EXAM Dilatation: 1 Effacement: 50 Station: -3 Contraction Comments: irreg MEMBRANES Membranes: Intact FETUS A EGA: 35.6 Monitoring: External US FHR- Baseline: 180 Variability: Moderate 6-25bpm Accelerations: 15X15 Decelerations: None FHR Category: Category II Presentation: Vertex Admit Comment: 29yo at 35+5ega presents with cough, SOB, n/v, body aches, chills. FHR 180s and then after fluid recussitation was reactive. Labs done and Hospitalist consult. Suspect at very least patient has flu (Flu A did come back positive) - Tamiflu was already written due to patient with multiple family members with flu. CXR and EKG ordered. APpreciate hospitalist consult and assistance with patient. Incentive spirometer ordered. A2GDM on glyburide - Insulin ordered by hospitalist since she will also need steroids for lung issue. Once she becomes stable and FHR stable then will be able to transfer to floor, if maternal heart rate does not respond to fluids may need to be in telemetry. No e/o of labor at this time. PLANS FOR LABOR AND DELIVERY Labor and Delivery: None Pain Management: Epidural Feeding Preference: Both Benefit of Breast Feed Discussed: Yes Circumcision: N/A INFORMED CONSENT Informed Consent Obtained: Vaginal Delivery; Risks, Benefits and Alternatives Discussed Signature: with User ID: [email or web address]
[2019-06-10] MEDS ORDERED: ONDANSETRON HCL INJ/PF 4 MG/2 ML SDV IV PRN (08:00)
[2019-06-10] MEDS: INSULIN LISPRO 100 UNIT/ML 3 ML VIAL SUBCUT SCH (08:15)
[2019-06-10] MEDS ORDERED: INFLUENZA QUAD (6MOS+) 2019-20 VAC 0.5 ML SYR IM ONE (08:19)
[2019-06-10 08:29] LABS: ABSOLUTE LYMPHOCYTES (AUTO) 0.6 10^3/uL (0.5-4.7); ABSOLUTE MONOCYTES (AUTO) 0.4 10^3/uL (0.1-1.4); ABSOLUTE NEUT (AUTO) 3.8 10^3/uL (1.7-8.2); BASOPHILS % (AUTO) 0.5 % (0-2); EOSINOPHILS % (AUTO) 0.6 % (0-6); HEMATOCRIT 26.7 % (36.0-47.0); HEMOGLOBIN 9.1 g/dL (12.0-15.5); LYMPHOCYTES % (AUTO) 12.7 % (13-45); MEAN CORPUSCULAR HEMOGLOBIN 27.1 pg (27.0-33.4); MEAN CORPUSCULAR HGB CONC 34.1 g/dL (32.0-36.0); MEAN CORPUSCULAR VOLUME 80 fl (80-97); MONOCYTES % (AUTO) 8.1 % (3-13); PLATELET COUNT 282 10^3/uL (150-450); RED BLOOD COUNT 3.36 10^6/uL (3.72-5.28); RED CELL DISTRIBUTION WIDTH 14.6 % (11.5-14.0); SEGMENTED NEUTROPHILS % (AUTO) 78.1 % (42-78); TOTAL CELLS COUNTED % (AUTO) 100 %; WHITE BLOOD COUNT 4.8 10^3/uL (4.0-10.5)
--- NOTE | 2019-06-10 08:48 | PDOC PROGRESS REPORT ---
Subjective Progress Note for:: 06/10/19 Subjective:: still some body aches, reports that she overall feels better, prod cough, feels hot, chills still, nausea/vomiting improved. Reason For Visit: FLU A Physical Exam - Physical Exam Vital Signs: Temp Pulse Resp BP Pulse Ox 98.5 F 121 H 28 H 131/74 H 96 06/10/19 01:51 06/09/19 17:47 06/09/19 17:47 06/09/19 17:47 06/09/19 17:47 Intake & Output 06/09/19 06/10/19 06/11/19 06:59 06:59 06:59 Weight 66.4 kg General appearance: PRESENT: cooperative, mild distress, well-developed, well-nourished Head exam: PRESENT: atraumatic, normocephalic Respiratory exam: PRESENT: decreased breath sounds - in bases due to effort, symmetrical, wheezes Cardiovascular exam: PRESENT: RRR, tachycardia. ABSENT: diastolic murmur, rubs, systolic murmur Pulses: PRESENT: normal dorsalis pedis pul, +2 pedal pulses bilateral GI/Abdominal exam: PRESENT: normal bowel sounds, soft. ABSENT: distended, guarding, mass, organolmegaly, rebound, tenderness Rectal exam: PRESENT: deferred Extremities exam: PRESENT: full ROM. ABSENT: calf tenderness, clubbing, pedal edema Neurological exam: PRESENT: alert, awake, oriented to person, oriented to place, oriented to time, oriented to situation, CN II-XII grossly intact. ABSENT: motor sensory deficit Psychiatric exam: PRESENT: appropriate affect, normal mood. ABSENT: homicidal ideation, suicidal ideation Skin exam: PRESENT: dry, intact, warm. ABSENT: cyanosis, rash Result Laboratory Results: 06/10/19 08:12 06/09/19 06/09/19 06/09/19 16:40 17:08 17:08 WBC 8.6 RBC 4.00 Hgb 10.9 L Hct 32.3 L MCV 81 MCH 27.1 MCHC 33.6 RDW 14.6 H Plt Count 333 Seg Neutrophils % 88.0 H Sodium 133.0 L Potassium 4.0 Chloride 103 Carbon Dioxide 21 L Anion Gap 9 BUN 6 L Creatinine 0.47 L Est GFR ( Amer) > 60 Glucose 82 Lactic Acid Calcium 8.8 Magnesium Total Bilirubin 0.6 AST 22 Alkaline Phosphatase 241 H Total Protein 6.8 Albumin 3.6 Urine Color LARISA Urine Appearance CLOUDY Urine pH 7.0 Ur Specific [place] 1.034 Urine Protein 100 H Urine Glucose (UA) NEGATIVE Urine Ketones 80 H Urine Blood NEGATIVE Urine Nitrite NEGATIVE Ur Leukocyte Esterase TRACE H Urine WBC (Auto) 06/09/19 06/09/19 06/09/19 17:08 17:08 19:30 WBC RBC Hgb Hct MCV MCH MCHC RDW Plt Count Seg Neutrophils % Sodium Potassium Chloride Carbon Dioxide Anion Gap BUN Creatinine Est GFR ( Amer) Glucose Lactic Acid 1.6 Calcium Magnesium 1.8 Total Bilirubin AST Alkaline Phosphatase Total Protein Albumin Urine Color YELLOW Urine Appearance CLEAR Urine pH 7.0 Ur Specific [place] 1.010 Urine Protein 30 H Urine Glucose (UA) NEGATIVE Urine Ketones 80 H Urine Blood NEGATIVE Urine Nitrite NEGATIVE Ur Leukocyte Esterase NEGATIVE Urine WBC (Auto) 1 06/09/19 06/09/19 06/10/19 20:15 22:57 01:55 WBC RBC Hgb Hct MCV MCH MCHC RDW Plt Count Seg Neutrophils % Sodium Potassium Chloride Carbon Dioxide Anion Gap BUN Creatinine Est GFR ( Amer) Glucose Lactic Acid 1.2 1.5 1.5 Calcium Magnesium Total Bilirubin AST Alkaline Phosphatase Total Protein Albumin Urine Color Urine Appearance Urine pH Ur Specific [place] Urine Protein Urine Glucose (UA) Urine Ketones Urine Blood Urine Nitrite Ur Leukocyte Esterase Urine WBC (Auto) 06/10/19 08:12 WBC 4.8 RBC 3.36 L Hgb 9.1 L Hct 26.7 L MCV 80 MCH 27.1 MCHC 34.1 RDW 14.6 H Plt Count 282 Seg Neutrophils % 78.1 H Sodium Potassium Chloride Carbon Dioxide Anion Gap BUN Creatinine Est GFR ( Amer) Glucose Lactic Acid Calcium Magnesium Total Bilirubin AST Alkaline Phosphatase Total Protein Albumin Urine Color Urine Appearance Urine pH Ur Specific [place] Urine Protein Urine Glucose (UA) Urine Ketones Urine Blood Urine Nitrite Ur Leukocyte Esterase Urine WBC (Auto) Status: Imported from PACS Assessment & Plan - Diagnosis (1) tachycardia affecting management of mother Is this a current diagnosis for this admission?: Yes Plan: tachycardia improved now with FHR 160s and reactive. Will transfer to the floor with BID NST (2) Gestational diabetes Qualifiers: Gestational diabetes mellitus control: oral hypoglycemic-controlled Trimester: third trimester Qualified Code(s): O24.415 - Gestational diabetes mellitus in , controlled by oral hypoglycemic drugs Is this a current diagnosis for this admission?: Yes Plan: start NPH at night 5 units. Adjust SSI to tighter - written order due to not able to order in [employer]. Would like to have goal of fasting less than 95, 2 hr PP less than 120. Accuchecks ordered. Diet adjusted to diabetic. Adjust insulin NPH/reg/SSI as needed. (3) Influenza A Is this a current diagnosis for this admission?: Yes Plan: cont tamiflu. Appreciate Hospitalist assistance with patient. (4) Nausea and vomiting Qualifiers: Vomiting Intractability: non-intractable Is this a current diagnosis for this admission?: Yes Plan: prn zofran as needed (5) Respiratory distress Is this a current diagnosis for this admission?: Yes Plan: now improved and patient feeling better, still on O2 for comfort (6) Tachycardia Is this a current diagnosis for this admission?: Yes Plan: improved no need for telemetry at this time - Time Time Spent with patient: 15-24 minutes Smoking Cessation Education: 3 to 10 minutes Medications reviewed and adjusted accordingly: Yes Anticipated discharge: Home Within: within 36 hours - Inpatient Certification Based on my medical assessment, after consideration of the patient's comorbidities, presenting symptoms, or acuity I expect that the services needed warrant INPATIENT care.: Yes I certify that my determination is in accordance with my understanding of Medicare's requirements for reasonable and necessary INPATIENT services [42 CFR 412.3e].: Yes Medical Necessity: Need Close Monitoring Due to Risk of Patient Decompensation, Need For IV Fluids, Need For Continuous Telemetry Monitoring, Need for IV Antibiotics, Risk of Complication if Not Cared For in Hospital Post Hospital Care: D/C Account Manager Relief Documentation - Plan Summary Plan Summary: convention planner placed
[2019-06-10 08:53] LABS: ANION GAP 9 (5-19); BLOOD UREA NITROGEN 4 mg/dL (7-20); CALCIUM 8.3 mg/dL (8.4-10.2); CARBON DIOXIDE 20 mmol/L (22-30); CHLORIDE 102 mmol/L (98-107); GLUCOSE 83 mg/dL (75-110); POTASSIUM 3.6 mmol/L (3.6-5.0)
--- NOTE | 2019-06-10 08:58 | RADIOLOGY REPORT (SQ) ---
EXAM DESCRIPTION: CHEST SINGLE VIEW COMPLETED DATE/TIME: 06/10/2019 8:46 am REASON FOR STUDY: dyspnea COMPARISON: AP view of the chest from 06/09/2019. EXAM PARAMETERS: NUMBER OF VIEWS: One view. TECHNIQUE: An AP view of the chest was obtained. RADIATION DOSE: NA LIMITATIONS: None. FINDINGS: LUNGS AND PLEURA: Low inspiratory lung volumes without a superimposed consolidation, pleur al effusion or pneumothorax. MEDIASTINUM AND HILAR STRUCTURES: No mediastinal or hilar contour abnormality. HEART AND VASCULAR STRUCTURES: The cardiac silhouette and pulmonary vasculature are within normal [place] its. BONES: No acute findings. HARDWARE: None in the chest. OTHER: No other finding. IMPRESSION: Low inspiratory lung volumes without a superimposed acute cardiopulmonary process. TECHNICAL DOCUMENTATION: JOB ID: [id number] [employer]- All Rights Reserved Reading location - IP/workstation name: [email or web address]
--- NOTE | 2019-06-10 09:19 | PDOC PROGRESS REPORT ---
Subjective Progress Note for:: 06/10/19 Subjective:: JENN BELLAMY is a 29 year old female with a past medical history significant for depression, bipolar, gestational diabetes, who is and approximately 34 weeks EGA who was admitted to 1620 with acute respiratory distress secondary to influenza A. Patient was seen on morning rounds. She was found resting in bed, comfortably, on supplemental oxygen via nasal cannula. She does report that she is feeling better today with decreased frequency of cough, and no further episodes of nausea or vomiting. She does remain tachypneic with dyspnea at rest. Her p rimary complaint today is severe fatigue. Otherwise, she denies chest pain, palpitations, abdominal pain, nausea vomiting and diarrhea. She has no other questions or concerns at this time. No concerns per nursing. Reason For Visit: POSSIBLE FLU Physical Exam Vital Signs: Temp Pulse Resp BP Pulse Ox 98.5 F 121 H 28 H 131/74 H 96 06/10/19 01:51 06/09/19 17:47 06/09/19 17:47 06/09/19 17:47 06/09/19 17:47 Intake & Output 06/09/19 06/10/19 06/11/19 06:59 06:59 06:59 Weight 66.4 kg General appearance: PRESENT: no acute distress, cooperative, well-developed, well-nourished Head exam: PRESENT: atraumatic, normocephalic Eye exam: PRESENT: conjunctiva pink, EOMI, PERRLA. ABSENT: scleral icterus Ear exam: PRESENT: normal external ear exam Mouth exam: PRESENT: moist, tongue midline Respiratory exam: PRESENT: rhonchi - improved, symmetrical, tachypnea, unlabored, other - Supplemental oxygen via nasal cannula. ABSENT: rales, wheezes Cardiovascular exam: PRESENT: RRR, +S1, +S2, tachycardia - HR 100-110. ABSENT: diastolic murmur, rubs, systolic murmur Pulses: PRESENT: normal dorsalis pedis pul Vascular exam: PRESENT: normal capillary refill Extremities exam: PRESENT: full ROM. ABSENT: calf tenderness, clubbing, pedal edema Neurological exam: PRESENT: alert, awake, oriented to person, oriented to place, oriented to time, oriented to situation, CN II-XII grossly intact. ABSENT: motor sensory deficit Psychiatric exam: PRESENT: appropriate affect, normal mood. ABSENT: homicidal ideation, suicidal ideation Skin exam: PRESENT: dry, intact, warm. ABSENT: cyanosis, rash Results Laboratory Results: 06/10/19 08:12 06/10/19 08:12 06/09/19 06/09/19 06/09/19 16:40 17:08 17:08 WBC 8.6 RBC 4.00 Hgb 10.9 L Hct 32.3 L MCV 81 MCH 27.1 MCHC 33.6 RDW 14.6 H Plt Count 333 Seg Neutrophils % 88.0 H Sodium 133.0 L Potassium 4.0 Chloride 103 Carbon Dioxide 21 L Anion Gap 9 BUN 6 L Creatinine 0.47 L Est GFR ( Amer) > 60 Glucose 82 Lactic Acid Calcium 8.8 Magnesium Total Bilirubin 0.6 AST 22 Alkaline Phosphatase 241 H Total Protein 6.8 Albumin 3.6 Urine Color LARISA Urine Appearance CLOUDY Urine pH 7.0 Ur Specific [place] 1.034 Urine Protein 100 H Urine Glucose (UA) NEGATIVE Urine Ketones 80 H Urine Blood NEGATIVE Urine Nitrite NEGATIVE Ur Leukocyte Esterase TRACE H Urine WBC (Auto) 06/09/19 06/09/19 06/09/19 17:08 17:08 19:30 WBC RBC Hgb Hct MCV MCH MCHC RDW Plt Count Seg Neutrophils % Sodium Potassium Chloride Carbon Dioxide Anion Gap BUN Creatinine Est GFR ( Amer) Glucose Lactic Acid 1.6 Calcium Magnesium 1.8 Total Bilirubin AST Alkaline Phosphatase Total Protein Albumin Urine Color YELLOW Urine Appearance CLEAR Urine pH 7.0 Ur Specific [place] 1.010 Urine Protein 30 H Urine Glucose (UA) NEGATIVE Urine Ketones 80 H Urine Blood NEGATIVE Urine Nitrite NEGATIVE Ur Leukocyte Esterase NEGATIVE Urine WBC (Auto) 1 06/09/19 06/09/19 06/10/19 20:15 22:57 01:55 WBC RBC Hgb Hct MCV MCH MCHC RDW Plt Count Seg Neutrophils % Sodium Potassium Chloride Carbon Dioxide Anion Gap BUN Creatinine Est GFR ( Amer) Glucose Lactic Acid 1.2 1.5 1.5 Calcium Magnesium Total Bilirubin AST Alkaline Phosphatase Total Protein Albumin Urine Color Urine Appearance Urine pH Ur Specific [place] Urine Protein Urine Glucose (UA) Urine Ketones Urine Blood Urine Nitrite Ur Leukocyte Esterase Urine WBC (Auto) 06/10/19 06/10/19 08:12 08:12 WBC 4.8 RBC 3.36 L Hgb 9.1 L Hct 26.7 L MCV 80 MCH 27.1 MCHC 34.1 RDW 14.6 H Plt Count 282 Seg Neutrophils % 78.1 H Sodium 131.2 L Potassium 3.6 Chloride 102 Carbon Dioxide 20 L Anion Gap 9 BUN 4 L Creatinine 0.45 L Est GFR ( Amer) > 60 Glucose 83 Lactic Acid Calcium 8.3 L Magnesium Total Bilirubin AST Alkaline Phosphatase Total Protein Albumin Urine Color Urine Appearance Urine pH Ur Specific [place] Urine Protein Urine Glucose (UA) Urine Ketones Urine Blood Urine Nitrite Ur Leukocyte Esterase Urine WBC (Auto) Impressions: Chest X-Ray 06/10/19 07:00 IMPRESSION: Low inspiratory lung volumes without a superimposed acute cardiopulmonary process. Assessment and Plan - Diagnosis (1) Respiratory distress Is this a current diagnosis for this admission?: Yes Plan: Improved. Secondary to influenza A. Chest x-ray is read as negative for acute cardiopulmonary processes; a personal review, I am concerned about possibly developing right middle lobe consolidation. Repeat chest x-ray remains negative for infiltrates. She appears clinically improved today with decreased tachypnea, tachycardia, and decreased rhonchi. Admitted to the [facility]ICE service. Supplemental oxygen as needed to maintain saturations greater than 93%. She is empirically placed on IV azithromycin and Rocephin for treatment of a possible developing community-acquired pneumonia in the setting of influenza. Would recommend discontinuing IV antibiotics tomorrow if blood cultures remain negative with Normal WBCs and downward trend in fever curve. Tamiflu for influenza. As needed nebulizer treatments. Robitussin as needed. Encourage pulmonary toilet with incentive spirometer and change of position. (2) Influenza A Is this a current diagnosis for this admission?: Yes Plan: Patient is admitted to the [facility] service. Continue Tamiflu twice daily. Symptom management with supportive care; IV fluids, supplemental oxygen, as needed nebulizers, Robitussin. (3) Dehydration Is this a current diagnosis for this admission?: Yes Plan: Resolved. Patient demonstrates evidence of dehydration with tachypnea, tachycardia, and dry mucous membranes. She is found to have Mild hyponatremia and an elevated bicarb. She has a high specific gravity, elevated bicarb, and high urine specific gravity with urine protein and ketones. She was provided a 2 L bolus (30 mL's per kilogram) followed by maintenance IV fluids. Encourage p.o. fluids. (4) Tachycardia Is this a current diagnosis for this admission?: Yes Plan: Improved. Secondary to #1-3. EKG demonstrated sinus tachycardia. Patient's tachycardia appears to be trending downward with IV fluids. Supportive care with management as above. (5) Nausea and vomiting Qualifiers: Vomiting Intractability: non-intractable Is this a current diagnosis for this admission?: Yes Plan: Secondary to acute illness. We will rehydrate with IV fluids. Antiemetics as needed. (6) Gestational diabetes Qualifiers: Gestational diabetes mellitus control: oral hypoglycemic-controlled Trimester: third trimester Qualified Code(s): O24.415 - Gestational diabetes mellitus in , controlled by oral hypoglycemic drugs Is this a current diagnosis for this admission?: Yes Plan: Patient utilizes glipizide for management at home. Recommend holding oral antihyperglycemic's while admitted. She is placed on a consistent carb diet. Discussed with Dr. Solis today; recommending tighter glycemic control. She is being placed on NPH with postprandial sliding scale insulin. A1c is pending. (7) tachycardia affecting management of mother Is this a current diagnosis for this admission?: Yes Plan: Management per [facility] [facility] [employer]ICE. IV fluids as above. - Time Time Spent with patient: 35 or more minutes Medications reviewed and adjusted accordingly: Yes Anticipated discharge: Home
[2019-06-10] MEDS: SERTRALINE HCL 50 MG TABLET PO SCH (09:55)
[2019-06-10] MEDS: PRENATAL VITAMIN W DHA CAPSULE PO SCH (09:56)
[2019-06-10] MEDS: OSELTAMIVIR PHOSPHATE 75 MG CAPSULE PO SCH ×2 (09:56→18:02)
[2019-06-10] MEDS: LIDOCAINE 5% (700 MG) TRANSDERMAL ADH..PATCH TP SCH (09:56)
[2019-06-10] MEDS: FAMOTIDINE 20 MG TABLET PO SCH ×2 (09:56→21:39)
[2019-06-10] MEDS ORDERED: (PENDING PHARMACY ID) (Lurasidone Hcl [Latuda] 20 MG) PO SCH (10:00)
[2019-06-10] MEDS: INSULIN REG, HUMAN 100 UNIT/ML 3 ML VIAL (PYX) SUBCUT SCH ×3 (11:33→21:31)
[2019-06-10] MEDS ORDERED: LURASIDONE HCL 40 MG TABLET PO SCH (17:00)
[2019-06-10] MEDS: AZITHROMYCIN 500 MG in DEXTROSE 5%-WATER 250 ML IV SCH (21:57)
[2019-06-10] MEDS ORDERED: PHARMACY COMMUNICATION ORDER MC SCH (22:00)
[2019-06-10] MEDS ORDERED: INSULIN NPH (ISOPHANE), HUMAN 100 UNIT/ML 3 ML SUBCUT SCH (22:00)
[2019-06-11] MEDS: CEFTRIAXONE 1 GM/D5W RTU 1 GM/50 ML RTUPB IV SCH (05:43)
[2019-06-11] MEDS: ACETAMINOPHEN 325 MG TABLET PO SCH ×2 (05:44)
--- NOTE | 2019-06-11 07:17 | RADIOLOGY REPORT (SQ) ---
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 TECHNIQUE: Transverse and longitudinal real time images of the abdomen were obtained for biophysical profile score. COMPARISON: None available FINDINGS: Observation for at least 20 minutes demonstrates: breathin muscle tone: 2 Acute motion and: 2 Amniotic fluid volume: 2 Total biophysical profile score of 8/8. A single intrauterine with the fetus cephalic in position is seen. The heart rate is approximately 162 beats per minute. Amniotic fluid index is approximately 11.0 cm, with the deepest vertical pocket of 8.8 cm. The internal organs were not well visualized, due to the late gestational age. The placenta is posterior. The cervix measures at least 3.6 cm in length. IMPRESSION: A total biophysical profile score is 8 out of 8 was obtained. A single, live intrauterine is cephalic in position.
[2019-06-11] MEDS ORDERED: INSULIN REG, HUMAN 100 UNIT/ML 3 ML VIAL (PYX) SUBCUT SCH (08:00)
[2019-06-11] MEDS: OSELTAMIVIR PHOSPHATE 75 MG CAPSULE PO SCH (09:36)
[2019-06-11] MEDS: PRENATAL VITAMIN W DHA CAPSULE PO SCH (09:36)
[2019-06-11] MEDS: SERTRALINE HCL 50 MG TABLET PO SCH (09:36)
[2019-06-11] MEDS: FAMOTIDINE 20 MG TABLET PO SCH (09:36)
[2019-06-11] MEDS: LIDOCAINE 5% (700 MG) TRANSDERMAL ADH..PATCH TP SCH (09:38)
--- NOTE | 2019-06-11 10:04 | PDOC DISCHARGE SUMMARY ---
Impression - Admit/DC Date/PCP Admission Date/Primary Care Provider: 06/09/19 17:41 FRANNY RIVAS MD Discharge Date: 06/11/19 - Discharge Diagnosis (1) Dehydration Is this a current diagnosis for this admission?: Yes (2) Influenza A Is this a current diagnosis for this admission?: Yes - Assessment Summary: The patient was admitted for flu. She has had three doses of Tamiflu and IV fluids. This morning she feels well and is not coughing. She would like to go home today. Her next followup is tomorrow. Her baby is moving well. - Additional Information Resuscitation Status: Full Code Discharge Diet: As Tolerated, Diabetic Discharge Activity: Activity As Tolerated Referrals: FRANNY RIVAS MD [Primary Care Provider] - Prescriptions: Oseltamivir Phosphate [Tamiflu 75 mg Capsule] 75 mg PO BID 4 Days #4 capsule Home Medications: Lurasidone HCl [Latuda] 20 mg PO DAILY 06/05/19 Vit/Dha [ Multi + Dha Capsule] 1 cap PO DAILY 06/05/19 Sertraline HCl [Zoloft 50 mg Tablet] 50 mg PO DAILY 06/05/19 Glyburide [Diabeta 2.5 mg Tablet] 2.5 mg PO DAILY 06/10/19 Oseltamivir Phosphate [Tamiflu 75 mg Capsule] 75 mg PO BID 4 Days #4 capsule 06/11/19 Additional Information: She has an appt tomorrow. History of Present Illiness History of Present Illness: JENN BELLAMY is a 29 year old female Physical Exam - Physical Exam Vital Signs: Temp Pulse Resp BP Pulse Ox 97.8 F 77 18 118/72 100 06/11/19 08:29 06/11/19 08:29 06/11/19 08:29 06/11/19 08:29 06/11/19 08:29 Intake & Output 06/10/19 06/11/19 06/12/19 06:59 06:59 06:59 Intake Total 290 Balance 290 Weight 66.4 kg 68.8 kg Results Laboratory Results: WBC 4.8 10^3/uL (4.0-10.5) 06/10/19 08:12 RBC 3.36 10^6/uL (3.72-5.28) L 06/10/19 08:12 Hgb 9.1 g/dL (12.0-15.5) L 06/10/19 08:12 Hct 26.7 % (36.0-47.0) L 06/10/19 08:12 MCV 80 fl (80-97) 06/10/19 08:12 MCH 27.1 pg (27.0-33.4) 06/10/19 08:12 MCHC 34.1 g/dL (32.0-36.0) 06/10/19 08:12 RDW 14.6 % (11.5-14.0) H 06/10/19 08:12 Plt Count 282 10^3/uL (150-450) 06/10/19 08:12 Lymph % (Auto) 12.7 % (13-45) L 06/10/19 08:12 [place] % (Auto) 8.1 % (3-13) 06/10/19 08:12 Eos % (Auto) 0.6 % (0-6) 06/10/19 08:12 Baso % (Auto) 0.5 % (0-2) 06/10/19 08:12 Absolute Neuts (auto) 3.8 10^3/uL (1.7-8.2) 06/10/19 08:12 Absolute Lymphs (auto) 0.6 10^3/uL (0.5-4.7) 06/10/19 08:12 Absolute Monos (auto) 0.4 10^3/uL (0.1-1.4) 06/10/19 08:12 Absolute Eos (auto) 0.0 10^3/uL (0.0-0.6) 06/10/19 08:12 Absolute Basos (auto) 0.0 10^3/uL (0.0-0.2) 06/10/19 08:12 Seg Neutrophils % 78.1 % (42-78) H 06/10/19 08:12 Sodium 131.2 mmol/L (137-145) L 06/10/19 08:12 Potassium 3.6 mmol/L (3.6-5.0) 06/10/19 08:12 Chloride 102 mmol/L (98-107) 06/10/19 08:12 Carbon Dioxide 20 mmol/L (22-30) L 06/10/19 08:12 Anion Gap 9 (5-19) 06/10/19 08:12 BUN 4 mg/dL (7-20) L 06/10/19 08:12 Creatinine 0.45 mg/dL (0.52-1.25) L 06/10/19 08:12 Est GFR ( Amer) > 60 (>60) 06/10/19 08:12 Est GFR (MDRD) Non-Af > 60 (>60) 06/10/19 08:12 Glucose 83 mg/dL (75-110) 06/10/19 08:12 POC Glucose 137 mg/dL (70-110) H 06/11/19 09:11 Hemoglobin A1c % 5.5 % (4.7-6.0) 06/10/19 08:12 Lactic Acid 1.5 mmol/L (0.7-2.1) 06/10/19 01:55 Calcium 8.3 mg/dL (8.4-10.2) L 06/10/19 08:12 Magnesium 1.8 mg/dL (1.6-2.3) 06/09/19 17:08 Total Bilirubin 0.6 mg/dL (0.2-1.3) 06/09/19 17:08 Direct Bilirubin 0.0 mg/dL (0.0-0.4) 06/09/19 17:08 Neonat Total Bilirubin Not Reportable 06/09/19 17:08 Neonat Direct Bilirubin Not Reportable 06/09/19 17:08 Neonat Indirect Bili Not Reportable 06/09/19 17:08 AST 22 U/L (14-36) 06/09/19 17:08 ALT 10 U/L (<35) 06/09/19 17:08 Alkaline Phosphatase 241 U/L (38-126) H 06/09/19 17:08 Total Protein 6.8 g/dL (6.3-8.2) 06/09/19 17:08 Albumin 3.6 g/dL (3.5-5.0) 06/09/19 17:08 Urine Color YELLOW 06/09/19 19:30 Urine Appearance CLEAR 06/09/19 19:30 Urine pH 7.0 (5.0-9.0) 06/09/19 19:30 Ur Specific [place] 1.010 06/09/19 19:30 Urine Protein 30 mg/dL (NEGATIVE) H 06/09/19 19:30 Urine Glucose (UA) NEGATIVE mg/dL (NEGATIVE) 06/09/19 19:30 Urine Ketones 80 mg/dL (NEGATIVE) H 06/09/19 19:30 Urine Blood NEGATIVE (NEGATIVE) 06/09/19 19:30 Urine Nitrite NEGATIVE (NEGATIVE) 06/09/19 19:30 Urine Bilirubin NEGATIVE (NEGATIVE) 06/09/19 19:30 Urine Urobilinogen 4.0 mg/dL (<2.0) H 06/09/19 19:30 Ur Leukocyte Esterase NEGATIVE (NEGATIVE) 06/09/19 19:30 Urine WBC (Auto) 1 /HPF 06/09/19 19:30 Squamous Epi Cells Auto 1 /HPF 06/09/19 19:30 Urine Mucus (Auto) RARE /LPF 06/09/19 19:30 Urine Ascorbic Acid NEGATIVE (NEGATIVE) 06/09/19 19:30 Membranes Rupture NEGATIVE (NEGATIVE) 06/09/19 17:30 Urine Opiates Screen NEGATIVE 06/09/19 16:40 Urine Methadone Screen NEGATIVE 06/09/19 16:40 Ur Barbiturates Screen NEGATIVE 06/09/19 16:40 Ur Phencyclidine Scrn NEGATIVE 06/09/19 16:40 Ur Amphetamines Screen NEGATIVE 06/09/19 16:40 U Benzodiazepines Scrn NEGATIVE 06/09/19 16:40 Urine Cocaine Screen NEGATIVE 06/09/19 16:40 U Marijuana (THC) Screen NEGATIVE 06/09/19 16:40 Chlamydia DNA (PCR) NOT DETECTED (NOT DETECT) 06/09/19 16:40 Influenza A (Rapid) POSITIVE (NEGATIVE) 06/09/19 17:04 Influenza B (Rapid) NEGATIVE (NEGATIVE) 06/09/19 17:04 N.gonorrhoeae DNA (PCR) NOT DETECTED (NOT DETECT) 06/09/19 16:40 Impressions: Chest X-Ray 06/09/19 16:52 IMPRESSION: NO ACUTE RADIOGRAPHIC FINDING IN THE CHEST. Chest X-Ray 06/10/19 07:00 IMPRESSION: Low inspiratory lung volumes without a superimposed acute cardiopulmonary process. Stress Test 06/11/19 05:34 IMPRESSION: A total biophysical profile score is 8 out of 8 was obtained. A single, live intrauterine is cephalic in position. Stroke Is this a Stroke Patient?: No Acute Heart Failure - Is this a Heart Failure Patient?: No
[2019-06-11 11:41] VITALS: BP 131/74
== END 2019-06-11 12:00 | disposition home or self-care (01) | DRG 832 ==
LOC: LC 16:13 → OBSVTOIN 17:41 → LR 17:41 → 2N 06-10 09:03
PROVIDERS: ADMIT Student in an Organized Health Care Education/Training Program; ATTEND Student in an Organized Health Care Education/Training Program
DX: O36.8330 Maternal care for abnormalities of the fetal heart rate or rhythm, third trimester, not applicable or unspecified (principal); E87.1 Hypo-osmolality and hyponatremia; O24.415 Gestational diabetes mellitus in pregnancy, controlled by oral hypoglycemic drugs; O26.893 Other specified pregnancy related conditions, third trimester; E86.0 Dehydration; J10.1 Influenza due to other identified influenza virus with other respiratory manifestations; O99.343 Other mental disorders complicating pregnancy, third trimester; O99.013 Anemia complicating pregnancy, third trimester; G43.909 Migraine, unspecified, not intractable, without status migrainosus; R11.2 Nausea with vomiting, unspecified; Z3A.34 34 weeks gestation of pregnancy; Z91.018 Allergy to other foods
CPT/HCPCS: 36415; 59025; 71045; 76819; 80048; 80053; 80307; 81001; 81005; 82962; 83036; 83605; 83735; 84112; 85025; 87040; 87070; 87077; 87081; 87086; 87205; 87491; 87591; 87804; 90686; 93005; 93010; 94799; G0378; G0379; J0456; J0696; J1170; J1815; J2405; J3490; J7060; J7120

== ENCOUNTER → 2019-06-25 | Outpatient (CLI) | payer MEDICAID ==
--- NOTE | 2019-06-25 13:11 | Non Stress Test Report ---
Non Stress Test Datetime Report Generated by CPN: 06/25/2019 13:11 DEMOGRAPHIC EGA NST: 38.1 VITAL SIGNS Temperature - NST: 98.6 Pulse - NST: 101 RESP - NST: 15 NBPSYS NST: 95 MONITORING Monitor Explained: Monitor Explained; Test Explained; Patient Verbalized Understanding Time on Monitor: 06/25/2019 12:46 Time off Monitor: 06/25/2019 13:08 NST Duration: 22 NST INTERVENTIONS NST Interventions: PO Hydration; Reposition Patient Physician Notified NST: K Muhammad CNM BABY A: [id number] BABY A Movement : Present Contraction Frequency : 0 FHR Baseline : 145 Accelerations : 15X15 Decelerations : None Variability : Moderate 6-25bpm NST Review: Meets Criteria for Reactive NST NST Review and Verified By : Luna Eaton RN NST Results: Reactive NST REPORT Report Trigger: Send Report
== END ==
LOC: LC 12:28
PROVIDERS: ATTEND Student in an Organized Health Care Education/Training Program
DX: Z34.93 Encounter for supervision of normal pregnancy, unspecified, third trimester (principal); Z3A.38 38 weeks gestation of pregnancy

== ENCOUNTER 2019-07-01 17:52 | Inpatient (IN) | payer BC, MEDICAID ==
[2019-07-01] MEDS ORDERED: DINOPROSTONE 10 MG VAGINAL INSERT.SR PV PRN (18:07)
[2019-07-01] MEDS ORDERED: RINGERS SOLUTION,LACTATED 1,000 ML IV PRN (18:07)
[2019-07-01] MEDS ORDERED: OXYTOCIN/NORMAL SALINE 20 UNIT/1,000 ML RTUINJ IV PRN (18:35)
[2019-07-01 19:00] LABS: APPEARANCE,URINE SLIGHTLY-CLOUDY; BILIRUBIN,URINE NEGATIVE (NEGATIVE); COLOR,URINE YELLOW; GLUCOSE, URINE NEGATIVE (NEGATIVE); KETONES,URINE NEGATIVE (NEGATIVE); LEUKOCYTE ESTERASE,URINE NEGATIVE (NEGATIVE); NITRITE,URINE NEGATIVE (NEGATIVE); PROTEIN,URINE NEGATIVE (NEGATIVE); URINE SPECIFIC GRAVITY 1.009; UROBILINOGEN,URINE NEGATIVE mg/dL (<2.0)
[2019-07-01 19:17] LABS: URINE AMPHETAMINES SCREEN NEGATIVE; URINE BARBITURATES SCREEN NEGATIVE; URINE BENZODIAZEPINES SCREEN NEGATIVE; URINE COCAINE SCREEN NEGATIVE; URINE MARIJUANA (THC) SCREEN NEGATIVE; URINE METHADONE SCREEN NEGATIVE; URINE PHENCYCLIDINE SCREEN NEGATIVE
[2019-07-01 19:21] LABS: ABSOLUTE BASOPHILS # (AUTO) 0.1 10^3/uL (0.0-0.2); ABSOLUTE EOSINOPHILS # (AUTO) 0.2 10^3/uL (0.0-0.6); ABSOLUTE LYMPHOCYTES (AUTO) 2.4 10^3/uL (0.5-4.7); ABSOLUTE MONOCYTES (AUTO) 0.8 10^3/uL (0.1-1.4); ABSOLUTE NEUT (AUTO) 4.2 10^3/uL (1.7-8.2); BASOPHILS % (AUTO) 1.2 % (0-2); EOSINOPHILS % (AUTO) 3.1 % (0-6); HEMATOCRIT 30.4 % (36.0-47.0); HEMOGLOBIN 10.4 g/dL (12.0-15.5); LYMPHOCYTES % (AUTO) 31.1 % (13-45); MEAN CORPUSCULAR HEMOGLOBIN 26.5 pg (27.0-33.4); MEAN CORPUSCULAR HGB CONC 34.4 g/dL (32.0-36.0); MEAN CORPUSCULAR VOLUME 77 fl (80-97); PLATELET COUNT 341 10^3/uL (150-450); RED BLOOD COUNT 3.94 10^6/uL (3.72-5.28); RED CELL DISTRIBUTION WIDTH 14.7 % (11.5-14.0); SEGMENTED NEUTROPHILS % (AUTO) 54.6 % (42-78); TOTAL CELLS COUNTED % (AUTO) 100 %; WHITE BLOOD COUNT 7.7 10^3/uL (4.0-10.5)
[2019-07-01] MEDS ORDERED: DINOPROSTONE 10 MG VAGINAL INSERT.SR ONE (19:31)
[2019-07-02] MEDS ORDERED: ZOLPIDEM TARTRATE 5 MG TABLET ONE (00:01)
[2019-07-02] MEDS ORDERED: ZOLPIDEM TARTRATE 5 MG TABLET PO ONE (00:30)
[2019-07-02] MEDS ORDERED: ACETAMINOPHEN 325 MG TABLET ONE (01:36)
[2019-07-02] MEDS ORDERED: ACETAMINOPHEN 325 MG TABLET PO ONE (02:00)
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
[2019-07-02] MEDS ORDERED: EPHEDRINE SULFATE INJ 50 MG/1 ML AMPULE ONE (10:22)
[2019-07-02] MEDS ORDERED: OXYTOCIN 10 UNIT/ML VIAL ONE ×2 (10:22→20:14)
[2019-07-02] MEDS ORDERED: MISOPROSTOL 0.2 MG TABLET ONE (10:22)
[2019-07-02] MEDS ORDERED: BUPIVACAINE HCL 0.25 % INJ/PF (2.5 MG/1 ML) 30 ML VIAL ONE (10:23)
[2019-07-02] MEDS ORDERED: OXYTOCIN/NORMAL SALINE 0 UNIT/0 ML RTUINJ ONE (10:23)
[2019-07-02] MEDS ORDERED: FENTANYL/BUPIVACAINE/NS/PF 300 MCG/150 ML RTUINJ EPI ONE (10:23)
[2019-07-02] MEDS ORDERED: LIDOCAINE 1% INJ-PF (10 MG/ML) 30 ML SDV ONE (10:23)
[2019-07-02] MEDS: RINGERS SOLUTION,LACTATED 1,000 ML IV PRN ×2 (10:39→15:30)
[2019-07-02] MEDS ORDERED: OXYTOCIN/NORMAL SALINE 20 UNIT/1,000 ML RTUINJ ONE ×2 (12:44→22:00)
[2019-07-02] MEDS ORDERED: SUCCINYLCHOLINE CHLORIDE INJ 200 MG/10 ML VIAL ONE (13:43)
[2019-07-02] MEDS ORDERED: ONDANSETRON HCL INJ/PF 4 MG/2 ML SDV ONE (13:43)
[2019-07-02] MEDS ORDERED: PHENYLEPHRINE HCL INJ/PF 10 MG/1 ML SDV ONE (13:43)
[2019-07-02] MEDS ORDERED: CITRIC ACID/SODIUM CITRATE ORAL SOLN 15 ML UDCUP ONE (19:53)
[2019-07-02] MEDS ORDERED: CEFAZOLIN INJ 1 GM VIAL ONE (19:54)
--- NOTE | 2019-07-02 20:14 | PDOC PROGRESS REPORT ---
Subjective Progress Note for:: 07/02/19 Subjective:: Pushed for about an hour and little descent. US showed OP presentation. Tried repositioning maneuvers with rest of pushing to see if baby would turn. Resumed pushing after this an no further descent and drop in FHR with pushing. Returns to baseline with resuscitative measures. Discussed with her that baby not moving down further with pushing. Remains OP, a contraindication to Vacuum assist. Discussed primary delivery d/t arrest of descent and persistant occiput posterior. Risks benefits and alternatives discussed. QUestions answered. Consent signed. Desires BLT as well for unwanted fertility. Discussed that this is permanent sterilization. She reports previously signing state consent and is 100 % sure. Will arrange with OR and anesthesia. Plan primary section and bilateral tubal ligation. Reason For Visit: /IOL Physical Exam - Physical Exam Vital Signs: Intake & Output 07/01/19 07/02/19 07/03/19 06:59 06:59 06:59 Intake Total 1000 Balance 1000 Weight 70.5 kg General appearance: PRESENT: no acute distress Respiratory exam: PRESENT: clear to auscultation wendy - Gravid uterus, firm iwht contractions Cardiovascular exam: PRESENT: RRR, +S1, +S2 Psychiatric exam: PRESENT: appropriate affect Skin exam: PRESENT: dry, warm Result Laboratory Results: 07/01/19 19:07 Assessment & Plan - Diagnosis (1) Arrest of descent, delivered, current hospitalization Is this a current diagnosis for this admission?: Yes (2) malpresentation Qualifiers: malpresentation type: other malpresentation Qualified Code(s): O32.8XX0 - Maternal care for other malpresentation of fetus, not applicable or unspecified Is this a current diagnosis for this admission?: Yes Plan: Plan Primary section and bilateral tubal ligation - Time Time Spent with patient: 15-24 minutes
[2019-07-02] MEDS ORDERED: FENTANYL CITRATE INJ/PF 100 MCG/2 ML AMPUL ONE (20:19)
[2019-07-02] MEDS ORDERED: PROPOFOL INJ 200 MG/20 ML VIAL IV ONE (20:54)
--- NOTE | 2019-07-02 21:48 | Operative Report ---
Operative Report DATE OF SURGERY: 07/02/19 PREOPERATIVE DIAGNOSIS: Intrauterine at term. Arrest of descent in l abor. Occiput posterior presentation. Unwanted fertility POSTOPERATIVE DIAGNOSIS: Same as above OPERATION: Primary section. Unwanted fertility SURGEON: MARLYN STEVENSON ANESTHESIA: GA TISSUE REMOVED OR ALTERED: Placenta COMPLICATIONS: None ESTIMATED BLOOD LOSS: 500cc INTRAOPERATIVE FINDINGS: Normal appearing uterus, bilaterfal fallopian tubes and ovaries. Clear amniotic fluid.Viable male in OP presentation. Apgars of 6 and 9 at one one and five minutes respectfully PROCEDURE: IV fluids: 800 cc per anesthesia record Urinary output: 50 cc Position: To recovery room in stable condition Description of procedure: The patient was taken to the operating room and spinal anesthesia was administered and found to be inadequate therefore general anesthesia was administered. Once adequate anesthesia obtained, She was placed on the OR table in the supine position with a slight leftward tilt. Patient was prepped and draped in usual sterile fashion. Ancef 2 gms was given IV prior to the procedure for infection prophylaxis. Timeout was taken. A Pfannenstiel skin incision was then made approximately 3 cm above the pubic symphysis and carried down to level the rectus fascia. The rectus fascia was then nicked in the midline with a scalpel and the fascial incision was extended laterally with use of curved Gutierrez scissors. The rectus fascia was then grasped with 2 Kocker clamps elevated and the underlying rectus muscle was dissected off both bluntly and sharply. Any bleeding controlled with cautery. The rectus muscles were then split in the midline and the peritoneum was entered. The peritoneal incision was then extended by manually stretching the peritoneum. The bladder blade was positioned. Bladder flap created and bladder blade replaced. The bladder was noted to be out of harm's way. A scalpel was then used in the lower uterine for the hysterotomy, slowly until amniotomy was obtained a moderate amount of fluid was noted. The uterine incision was then manually stretched. The infant was noted to be in vertex postion-occiput posterior but engaged deep in the pelvis. The head was delivered with minmal difficulty using assistant toddler teacher hand with upward pressure from the vagina. The shoulders and the rest of the body followed immediately. The cord was cut clamped and the was handed off to the nurse awaiting. The placenta was manually delivered. Using a lap gauze the uterus was cleared of all clots and debris. The uterus was then exteriorized and a bladder blade was repositioned. The uterine incision was then closed with 0 Chromic suture in a running locked fashion. A second layer of the same suture was used in a running locked imbricated fashion. The uterine incision was inspected and noted to be hemostatic. Retractor was removed. The posterior aspect of the uterus was then inspected and anatomy was seen as above. The right fallopian tube was identified and traced to the fimbriated end. A filshie clip was placed approximately 2 cm from the uterine cornu. Clip surrounded the tube in its entirety. Blanching noted and hemostasis. The left fallopian tube was identified and traced to the fimbriated end. A filshie clip was placed approximately 2 cm from the uterine cornu. Clip surrounded the tube in its entirety. Blanching noted and hemostasis. The uterus was returned to its normal anatomic position within the abdominal cavity. Warm saline irrigation was used to clear all clots and debris from the abdomen. The uterine incision was inspected once more and noted to remain hemostatic. The bladder blade was removed and the peritoneum was closed with 2-0 chromic in a running fashion. The rectus muscles were then reapproximated and the rectus fascia was closed with a #1 PDS in a running fashion. The subcutaneous tissue was then inspected and any bleeding was controlled with Bovie electrocautery. The skin was then closed with 3-0 Monocryl in a running subcuticular fashion. The skin incision was then clean dried and Dermabond was applied over the skin incision. All instrument sponge and needle counts were correct x3 for the procedure the patient tolerated the procedure well. She will proceed to recovery room in stable condition
[2019-07-02] MEDS ORDERED: METHYLERGONOVINE MALEATE INJ/PF 0.2 MG/1 ML AMPULE ONE (21:55)
[2019-07-02] MEDS ORDERED: DIPH/PERTUSS(ACELL)/TETANUS VAC/PF 0.5 ML SYR (>=10YO) IM PRN (21:59)
[2019-07-02] MEDS ORDERED: MEASLES,MUMPS&RUBELLA VACC/PF 0.5 ML VIAL SUBCUT PRN (21:59)
[2019-07-02] MEDS ORDERED: OXYTOCIN/NORMAL SALINE 20 UNIT/1,000 ML RTUINJ IV PRN (21:59)
[2019-07-02] MEDS ORDERED: SIMETHICONE 80 MG TAB.CHEW PO PRN (21:59)
[2019-07-02] MEDS ORDERED: OXYCODONE-ACETAMINOPHEN 5-325 MG TABLET PO PRN (21:59)
[2019-07-02] MEDS ORDERED: ACETAMINOPHEN 325 MG TABLET PO PRN (21:59)
[2019-07-02] MEDS ORDERED: HYDROMORPHONE HCL INJ/PF 2 MG/ML AMPULE IV PRN (21:59)
[2019-07-02] MEDS ORDERED: PROMETHAZINE HCL INJ 25 MG/1 ML VIAL IV PRN (21:59)
[2019-07-02] MEDS ORDERED: ACETAMINOPHEN 1,000 MG/100 ML RTUPB IV PRN (21:59)
[2019-07-02] MEDS ORDERED: ACETAMINOPHEN 1,000 MG/100 ML RTUPB IV ONE (22:00)
[2019-07-02] MEDS ORDERED: KETOROLAC TROMETHAMINE INJ/PF 30 MG/1 ML SDV ONE (22:00)
--- NOTE | 2019-07-02 22:06 | PDOC DELIVERY SUMMARY ---
Delivery Summary - Maternal Hx : IV Hx Para: III - Delivery Presentation: Vertex Heart Rate Monitoring: Done Pre-Operatively, Externally Uterine Contraction Monitoring: External Pattern: Variable Decels Pattern Other: MOderate variability: category II strip Support Person Present: Yes Location: OR : Primary Placenta: Within Normal Limits Number of Vessels (Cord): 3 Nuchal Cord: No Delivery of Placenta Date: 07/02/19 Estimated Blood Loss: 500cc - Medications Type of Anesthesia:: GA - Delivery Medications Delivery Meds: Methergine 0.2mg IM Delivery Meds Comment: Lower uterine segment noted to be atonic during closure of uterus. Fundus firm and upper uterus firm. Methergine ordered prophylactically - Delivery Personnel RN: SCOTTIE JACOBO MD: MARLYN STEVENSON
[2019-07-02] MEDS ORDERED: MORPHINE SULFATE 10 MG/ML INJ ONE (22:18)
[2019-07-02] MEDS ORDERED: MEPERIDINE HCL/PF INJ 25 MG/1 ML DISP.SYRIN ONE (22:18)
--- NOTE | 2019-07-02 23:26 | Delivery Summary ---
Del Sum A-C Datetime Report Generated by CPN: 07/02/2019 23:26 DELIVERY PERSONNEL DELIVERY PERSONNEL: [id number] Delivery Doctor:: Yesica Echols MD Anesthesiologist:: Efrain Restrepo MD BUILDING DRAFTER:: Kellythomas Mensah BUILDING DRAFTER Labor and Delivery Nurse:: Yadi Peña RN Complex Care Nurse Practitioner:: Yadi Peña RN Nursery Nurse:: Nicole CONTRERAS Hospital Coordinator/DIESEL ENGINE SPECIALIST: Jinny Bates GENETICS TEACHER Hospital Coordinator/DIESEL ENGINE SPECIALIST: Albertina Hollins, ST MATERNAL INFORMATION Delivery Anesthesia: Spinal; General Medications After Delivery: Pitocin Drip 20 Units/1000ml NSS Maternal Complications: None LABOR SUMMARY EDC: 07/08/2019 00:00 No. Babies in Womb: 1 Attempted: No Labor Anesthesia: Epidural LABOR INFORMATION Reason for Induction: Maternal Diabetes Onset of Labor: 07/02/2019 12:58 Complete Dilatation: 07/02/2019 17:40 Cervical Ripening Agents: Cervidil Oxytocin: Induction Group B Beta Strep: Negative Antibiotics # of Doses: 0 Antibiotics Time of Last Dose: N/A Name of Antibiotic Given: N/A Steroids Given: None Reason Steroids Not Administered: Not Applicable MEMBRANES Membranes Rupture Method: Artificial Rupture of Membranes: 07/02/2019 12:02 Length of Rupture (hr): 9.00 Amniotic Fluid Color: Clear Amniotic Fluid Amount: Small Amniotic Fluid Odor: Normal STAGES OF LABOR Stage 1 hr: 4 Stage 1 min: 42 Stage 2 hr: 3 Stage 2 min: 22 Stage 3 hr: 0 Stage 3 min: 2 Total Time in Labor hr: 8 Total Time in Labor min: 6 VAGINAL DELIVERY Episiotomy: None Laceration #1: None Laceration Extension #1: N/A Laceration Repair: Not Applicable Sponge Count Correct: N/A Sharps Count Correct: N/A CSECTION DELIVERY Primary Indication: Failure to progress Secondary Indication: Failed Induction CSection Urgency: Non-Scheduled CSection Incidence: Primary Labor: Labor Elective: Nonelective CSection Incision: Lower Uterine Transverse Other Sterilization Procedure: Filshie clips BABY A INFORMATION Infant Delivery Date/Time: 07/02/2019 21:02 Method of Delivery: Nurse Controlled Delivery: No Born in Route : No : N/A Forceps: N/A Vacuum Extraction: N/A Shoulder Dystocia : No PRESENTATION/POSITION BABY A Presentation: Cephalic Cephalic Presentation: N/A Breech Presentation: N/A PLACENTA INFORMATION BABY A Placenta Delivery Time : 07/02/2019 21:04 Placenta Method of Delivery: Manual Removal Placenta Status: Delivered SCORES BABY A Heart Rate 1 min: >100 bpm Resp Effort 1 min: Slow, Irregular Reflex Irritability 1 min: Cough or Sneeze or Pulls Away Muscle Tone 1 min: Some Flexion of Extremities Color 1 min: Blue/Pale SCORE 1 MIN: 6 Heart Rate 5 min: >100 bpm Resp Effort 5 min: Good Cry Reflex Irritability 5 min: Cough or Sneeze or Pulls Away Muscle Tone 5 min: Active Motion Color 5 min: Body Butler, Extremities Blue SCORE 5 MIN: 9 INFANT INFORMATION BABY A Gestational Age at Delivery: 39.1 Gestational Status: Full Term- 39- 40.6 Weeks Infant Outcome : Liveborn Condition : Stable Sex: Male IDENTIFICATION BABY A Infant Verification Date/Time: 07/02/2019 22:48 ID Band Number: [id number] Mother's Name Verified: Yes RN Verifying Infant: E. Hipolitolek RN/ D. Blanconce RN WEIGHT/LENGTH BABY A Infant Birthweight (gm): 3205 Infant Weight (lb): 7 Infant Weight (oz): 1 Infant Length (in): 21.00 Infant Length (cm): 53.34 CORD INFORMATION BABY A No. Cord Vessels: 3 Nuchal Cord : N/A Cord Blood Taken: Yes-For Storage (Mom's Blood type +) ASSESSMENT BABY A Skin to Skin: No BABY B INFORMATION : N/A
[2019-07-03] MEDS: KETOROLAC TROMETHAMINE INJ/PF 30 MG/1 ML SDV IV SCH ×3 (00:46→15:42)
[2019-07-03] MEDS: OXYCODONE-ACETAMINOPHEN 5-325 MG TABLET PO PRN (00:47)
[2019-07-03 06:39] LABS: HEMATOCRIT 28.8 % (36.0-47.0); HEMOGLOBIN 9.5 g/dL (12.0-15.5); MEAN CORPUSCULAR HEMOGLOBIN 25.7 pg (27.0-33.4); MEAN CORPUSCULAR HGB CONC 32.9 g/dL (32.0-36.0); MEAN CORPUSCULAR VOLUME 78 fl (80-97); PLATELET COUNT 298 10^3/uL (150-450); RED BLOOD COUNT 3.69 10^6/uL (3.72-5.28); RED CELL DISTRIBUTION WIDTH 15.1 % (11.5-14.0)
[2019-07-03 06:40] LABS: WHITE BLOOD COUNT 22.3 10^3/uL (4.0-10.5)
[2019-07-03] MEDS: IBUPROFEN 800 MG TABLET PO SCH ×3 (06:54→17:51)
[2019-07-03] MEDS: PRENATAL VITAMIN W DHA CAPSULE PO SCH ×2 (09:50→09:58)
[2019-07-03] MEDS: DOCUSATE SODIUM 100 MG CAPSULE PO SCH ×2 (09:50→17:51)
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
--- NOTE | 2019-07-03 12:28 | PDOC PROGRESS REPORT ---
Subjective-OB Progress Note for:: 07/03/19 Subjective: 29yo G4 now P4 s/p primary with BTL ppd1. Doing well, angi just removed has not walked or voided on her own yet. Just had pain medications but planning on ambulating when medication wears off. No concerns. Physical Exam (OB) Vital Signs: Temp Pulse Resp BP Pulse Ox 97.8 F 81 16 97/53 L 100 07/03/19 11:33 07/03/19 11:33 07/03/19 11:33 07/03/19 11:33 07/03/19 11:33 Intake & Output 07/02/19 07/03/19 07/04/19 06:59 06:59 06:59 Intake Total 1000 Output Total 3000 1000 Balance -2000 -1000 Weight 70.5 kg - General General Appearance: Appears well, Sleeping/easily aroused In distress: None - Dressing Removed: No Incision: Well Approximated Closure Type: Surgical Glue - Bilateral Tubal Ligation Dressing Removed: No - Lochia Lochia Amount: Scant < 10 ml Lochia Color: Rubra/Red - Abdomen Description: Tender, Soft, Round Hernia Present: No Fundal Description: Firm, Midline Fundal Height: u/u - u/2 - Respiratory Respiratory Status: No respiratory distress - Extremities Upper extremity: Normal inspection Lower extremities: Normal inspection - Neurological Cognition: Normal Orientation: AAOx4 - Psychological Associated symptoms: Normal affect, Normal mood Objective-Diagnostic Laboratory: 07/03/19 06:31 07/03/19 06:31 WBC 22.3 H D RBC 3.69 L Hgb 9.5 L Hct 28.8 L MCV 78 L MCH 25.7 L MCHC 32.9 RDW 15.1 H Plt Count 298 Assessment and Plan(PN) - Assessment and Plan (1) Anemia complicating , third trimester Is this a current diagnosis for this admission?: Yes Plan: increase dietary iron and FeSO4 BID (2) Arrest of descent, delivered, current hospitalization Is this a current diagnosis for this admission?: Yes Plan: delivered via (3) Delivery by section of full-term infant Is this a current diagnosis for this admission?: Yes Plan: routine pp care (4) Encounter for induction of labor Is this a current diagnosis for this admission?: Yes Plan: delivered (5) Gestational diabetes Qualifiers: Gestational diabetes mellitus control: oral hypoglycemic-controlled Trimester: third trimester Qualified Code(s): O24.415 - Gestational diabetes mellitus in , controlled by oral hypoglycemic drugs Is this a current diagnosis for this admission?: Yes Plan: delivered, will need fasting at pp visit. - Time Spent with Patient Time with patient: Less than 15 minutes Medications reviewed and adjusted accordingly: Yes - Disposition Anticipated Discharge: Home Within: within 24 hours
[2019-07-04] MEDS: IBUPROFEN 800 MG TABLET PO SCH ×3 (00:19→11:28)
[2019-07-04] MEDS: OXYCODONE-ACETAMINOPHEN 5-325 MG TABLET PO PRN ×2 (00:19→07:58)
--- NOTE | 2019-07-04 09:47 | PDOC PROGRESS REPORT ---
Subjective-OB Progress Note for:: 07/04/19 Subjective: Doing well, no c/o, ready to go home, , voiding, scant bleeding Physical Exam (OB) Vital Signs: Temp Pulse Resp BP Pulse Ox 97.6 F 87 16 115/83 100 07/04/19 08:00 07/04/19 08:00 07/04/19 08:00 07/04/19 08:00 07/04/19 08:00 Intake & Output 07/03/19 07/04/19 07/05/19 06:59 06:59 06:59 Intake Total 1000 Output Total 3000 3025 Balance -1999 - Dressing Removed: Yes Incision: Well Approximated Closure Type: Surgical Glue - Bilateral Tubal Ligation Dressing Removed: No - Lochia Lochia Amount: Small 10-25 ml Lochia Color: Rubra/Red - Abdomen Description: Tender, Soft, Round Hernia Present: No Fundal Description: Firm, Midline Fundal Height: u/u - u/2 Objective-Diagnostic Laboratory: 07/03/19 06:31 Assessment and Plan(PN) - Assessment and Plan (1) Anemia complicating , third trimester Is this a current diagnosis for this admission?: Yes (2) Delivery by section of full-term infant Is this a current diagnosis for this admission?: Yes (3) malpresentation Qualifiers: malpresentation type: other malpresentation Qualified Code(s): O32.8XX0 - Maternal care for other malpresentation of fetus, not applicable or u nspecified Is this a current diagnosis for this admission?: Yes (4) Arrest of descent, delivered, current hospitalization Is this a current diagnosis for this admission?: Yes (5) Encounter for induction of labor Is this a current diagnosis for this admission?: Yes (6) Nausea and vomiting Qualifiers: Vomiting Intractability: non-intractable Is this a current diagnosis for this admission?: Yes (7) Gestational diabetes Qualifiers: Gestational diabetes mellitus control: oral hypoglycemic-controlled Trimester: third trimester Qualified Code(s): O24.415 - Gestational diabetes mellitus in , controlled by oral hypoglycemic drugs Is this a current diagnosis for this admission?: Yes - Time Spent with Patient Time with patient: Less than 15 minutes Medications reviewed and adjusted accordingly: Yes - Disposition Anticipated Discharge: Home Within: within 24 hours
--- NOTE | 2019-07-04 10:18 | PDOC DISCHARGE SUMMARY ---
Impression - Admit/DC Date/PCP Admission Date/Primary Care Provider: 07/01/19 17:52 OLINDA LEAL MD Discharge Date: 07/04/19 - Discharge Diagnosis (1) Anemia complicating , third trimester Is this a current diagnosis for this admission?: Yes (2) Delivery by section of full-term Is this a current diagnosis for this admission?: Yes (3) malpresentation Is this a current diagnosis for this admission?: Yes (4) Arrest of descent, delivered, current hospitalization Is this a current diagnosis for this admission?: Yes (5) Encounter for induction of labor Is this a current diagnosis for this admission?: Yes (6) Nausea and vomiting Is this a current diagnosis for this admission?: Yes (7) Gestational diabetes Is this a current diagnosis for this admission?: Yes - Additional Information Resuscitation Status: Full Code Discharge Diet: As Tolerated, Regular Discharge Activity: Activity As Tolerated, No Driving, No Lifting Over 10 Pounds, No Lifting/Push/Pulling, Pelvic Rest, No tub bath Referrals: OLINDA LEAL MD [Primary Care Provider] - (A 1 week) Prescriptions: Oxycodone HCl/Acetaminophen [Percocet 5-325 mg Tablet] 1 tab PO Q4HP PRN #20 tablet PRN Reason: Ibuprofen [Motrin 800 mg Tablet] 800 mg PO Q6 #30 tablet Home Medications: Ibuprofen [Motrin 800 mg Tablet] 800 mg PO Q6 #30 tablet 07/04/19 Oxycodone HCl/Acetaminophen [Percocet 5-325 mg Tablet] 1 tab PO Q4HP PRN #20 tablet 07/04/19 Vit/Dha [ Multi + Dha Capsule] 1 cap PO DAILY capsule 07/04/19 Vit/Dha [ Multi + Dha Capsule] 1 cap PO DAILY capsule 07/04/19 HPI Gestational Age: 39.1 Reason(s) for Admission: Induction of Labor, Gestional Diabetes Procedures: NST, Ultrasound Intrapartum Procedure(s): : Low Cervical, Transverse Hospital Course Hospital Course: routine Results Laboratory Results: WBC 22.3 10^3/uL (4.0-10.5) H D 07/03/19 06:31 RBC 3.69 10^6/uL (3.72-5.28) L 07/03/19 06:31 Hgb 9.5 g/dL (12.0-15.5) L 07/03/19 06:31 Hct 28.8 % (36.0-47.0) L 07/03/19 06:31 MCV 78 fl (80-97) L 07/03/19 06:31 MCH 25.7 pg (27.0-33.4) L 07/03/19 06:31 MCHC 32.9 g/dL (32.0-36.0) 07/03/19 06:31 RDW 15.1 % (11.5-14.0) H 07/03/19 06:31 Plt Count 298 10^3/uL (150-450) 07/03/19 06:31 Lymph % (Auto) 31.1 % (13-45) 07/01/19 19:07 [place] % (Auto) 10.0 % (3-13) 07/01/19 19:07 Eos % (Auto) 3.1 % (0-6) 07/01/19 19:07 Baso % (Auto) 1.2 % (0-2) 07/01/19 19:07 Absolute Neuts (auto) 4.2 10^3/uL (1.7-8.2) 07/01/19 19:07 Absolute Lymphs (auto) 2.4 10^3/uL (0.5-4.7) 07/01/19 19:07 Absolute Monos (auto) 0.8 10^3/uL (0.1-1.4) 07/01/19 19:07 Absolute Eos (auto) 0.2 10^3/uL (0.0-0.6) 07/01/19 19:07 Absolute Basos (auto) 0.1 10^3/uL (0.0-0.2) 07/01/19 19:07 Seg Neutrophils % 54.6 % (42-78) 07/01/19 19:07 POC Glucose 98 mg/dL (70-110) 07/02/19 17:36 Urine Color YELLOW 07/01/19 18:05 Urine Appearance SLIGHTLY-CLOUDY 07/01/19 18:05 Urine pH 7.0 (5.0-9.0) 07/01/19 18:05 Ur Specific [place] 1.009 07/01/19 18:05 Urine Protein NEGATIVE mg/dL (NEGATIVE) 07/01/19 18:05 Urine Glucose (UA) NEGATIVE mg/dL (NEGATIVE) 07/01/19 18:05 Urine Ketones NEGATIVE mg/dL (NEGATIVE) 07/01/19 18:05 Urine Blood NEGATIVE (NEGATIVE) 07/01/19 18:05 Urine Nitrite NEGATIVE (NEGATIVE) 07/01/19 18:05 Urine Bilirubin NEGATIVE (NEGATIVE) 07/01/19 18:05 Urine Urobilinogen NEGATIVE mg/dL (<2.0) 07/01/19 18:05 Ur Leukocyte Esterase NEGATIVE (NEGATIVE) 07/01/19 18:05 Urine Ascorbic Acid NEGATIVE (NEGATIVE) 07/01/19 18:05 Urine Opiates Screen NEGATIVE 07/01/19 18:05 Urine Methadone Screen NEGATIVE 07/01/19 18:05 Ur Barbiturates Screen NEGATIVE 07/01/19 18:05 Ur Phencyclidine Scrn NEGATIVE 07/01/19 18:05 Ur Amphetamines Screen NEGATIVE 07/01/19 18:05 U Benzodiazepines Scrn NEGATIVE 07/01/19 18:05 Urine Cocaine Screen NEGATIVE 07/01/19 18:05 U Marijuana (THC) Screen NEGATIVE 07/01/19 18:05 RPR NONREACTIVE (NONREACTIVE) 07/01/19 19:07 Blood Type A POSITIVE 07/01/19 19:07 Antibody Screen NEGATIVE 07/01/19 19:07 Plan Health Concerns: routine post op Plan of Treatment: discharge home, rev S&S to report Goals: no complications Time Spent: Less than 30 Minutes
[2019-07-04] MEDS: PRENATAL VITAMIN W DHA CAPSULE PO SCH ×2 (11:01)
[2019-07-04] MEDS: DOCUSATE SODIUM 100 MG CAPSULE PO SCH (11:01)
[2019-07-04 12:11] VITALS: BP 120/89
[2019-07-04 13:16] LABS: HEMATOCRIT 25.4 % (36.0-47.0); HEMOGLOBIN 8.7 g/dL (12.0-15.5); MEAN CORPUSCULAR HEMOGLOBIN 26.5 pg (27.0-33.4); MEAN CORPUSCULAR HGB CONC 34.2 g/dL (32.0-36.0); MEAN CORPUSCULAR VOLUME 78 fl (80-97); PLATELET COUNT 305 10^3/uL (150-450); RED BLOOD COUNT 3.28 10^6/uL (3.72-5.28); RED CELL DISTRIBUTION WIDTH 14.9 % (11.5-14.0); WHITE BLOOD COUNT 14.7 10^3/uL (4.0-10.5)
== END 2019-07-04 15:55 | disposition home or self-care (01) | DRG 784 ==
LOC: LR 17:52 → EEVIPCON 17:52 → 2S 07-02 23:38
PROVIDERS: ADMIT Obstetrics & Gynecology; ATTEND Obstetrics & Gynecology
PROC: 10D00Z1 Extraction of Products of Conception, Low, Open Approach (ICD-10-PCS; principal; 2019-07-02)
PROC: 0UL70CZ Occlusion of Bilateral Fallopian Tubes with Extraluminal Device, Open Approach (ICD-10-PCS; 2019-07-02)
DX: O24.425 Gestational diabetes mellitus in childbirth, controlled by oral hypoglycemic drugs (principal); O99.354 Diseases of the nervous system complicating childbirth; Z30.2 Encounter for sterilization; O32.8XX0 Maternal care for other malpresentation of fetus, not applicable or unspecified; O62.1 Secondary uterine inertia; O99.02 Anemia complicating childbirth; D64.9 Anemia, unspecified; O99.52 Diseases of the respiratory system complicating childbirth; J45.909 Unspecified asthma, uncomplicated; G43.909 Migraine, unspecified, not intractable, without status migrainosus; O99.344 Other mental disorders complicating childbirth; Z62.810 Personal history of physical and sexual abuse in childhood; F31.9 Bipolar disorder, unspecified; Z3A.39 39 weeks gestation of pregnancy; Z37.0 Single live birth; Z91.410 Personal history of adult physical and sexual abuse
CPT/HCPCS: 1961; 36415; 80307; 81005; 82962; 85025; 85027; 86592; 86850; 86900; 86901; 88307; 90715; 94760; 94799; J0131; J0330; J0690; J1170; J1885; J2175; J2210; J2270; J2370; J2405; J2590; J2704; J3010; J3490

== ENCOUNTER 2019-07-05 20:03 | Emergency (ER) | payer MEDICAID ==
[2019-07-05 20:08] VITALS: BP 133/77
== END 2019-07-05 21:35 | disposition left against medical advice (07) ==
LOC: ER 20:03
DX: Z53.21 Procedure and treatment not carried out due to patient leaving prior to being seen by health care provider (principal); G43.909 Migraine, unspecified, not intractable, without status migrainosus

== ENCOUNTER 2019-11-17 20:45 | Emergency (ER) | payer MEDICAID ==
[2019-11-17 21:08] VITALS: BP 132/71
[2019-11-17] MEDS ORDERED: AZITHROMYCIN 250 MG TABLET PO ONE (21:40)
--- NOTE | 2019-11-17 21:40 | ER Document Report ---
ED Respiratory Problem - General Chief Complaint: Cough Stated Complaint: COUGH, CONGESTION, SHORTNESS OF BREATH Time Seen by Provider: 11/17/19 21:08 Primary Care Provider: OLINDA LEAL MD [Primary Care Provider] - Follow up as needed Notes: CHIEF COMPLAINT: Cough for 5 weeks HPI: 29-year-old female who smokes a pack of cigarettes a day presenting with cough for 5 weeks. Patient has not had a fever but feels like the cough is worsened over the last several days. 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 ROS: See HPI - all other systems were reviewed and are otherwise negative Constitutional: no fever Eyes: no drainage, no blurred vision ENT: no runny nose, no sore throat Cardiovascular: no chest pain Resp: + SOB, + cough GI: no vomiting, no diarrhea, no abdominal pain : no dysuria Integumentary: no rash Allergy: no hives Musculoskeletal: no extremity pain or swelling Neurological: no numbness/tingling, no weakness MEDICATIONS: I agree with the patient medications as charted by the RN. ALLERGIES: I agree with the allergies as charted by the RN. PAST MEDICAL HISTORY/PAST SURGICAL HISTORY: Reviewed and agree as charted by RN. SOCIAL HISTORY: Reviewed and agree as charted by RN. FAMILY HISTORY: No significant familial comorbid conditions directly related to patient complaint EXAM: Reviewed vital signs as charted by RN. CONSTITUTIONAL: Alert and oriented and responds appropriately to questions. Well-appearing; well-nourished HEAD: Normocephalic; atraumatic EYES: PERRL; Conjunctivae clear, sclerae non-icteric ENT: normal nose; no rhinorrhea; moist mucous membranes; pharynx without lesions noted, no uvula edema or deviation, no tonsillar hypertrophy, phonation normal NECK: Supple without meningismus; non-tender; no cervical lymphadenopathy, no masses CARD: RRR; no murmurs, no clicks, no rubs, no gallops; symmetric distal pulses RESP: Normal chest excursion without splinting or tachypnea; breath sounds clear and equal bilaterally; no wheezes, no rhonchi, no rales, pulse oximetry 100% on room air not hypoxic. Does not become dyspneic with speaking ABD/GI: Normal bowel sounds; non-distended; soft, non-tender, no rebound, no guarding; no palpable organomegaly or masses. BACK: The back appears normal and is non-tender to palpation, there is no CVA tenderness EXT: Normal ROM in all joints; non-tender to palpation; no cyanosis, no effusions, no edema SKIN: Normal color for age and race; warm; dry; good turgor; no acute lesions noted NEURO: Moves all extremities equally; Motor and sensory function intact PSYCH: The patient's mood and manner are appropriate. Grooming and personal hygiene are appropriate. MDM: 29-year-old female who smokes presenting for cough for 5 weeks. We will COVID test the patient given her employment. This is likely related to her smoking will treat as an atypical bronchitis with Z-Aiden, albuterol, follow-up PCP for smoking cessation. TRAVEL OUTSIDE OF THE [place] IN LAST 30 DAYS: No - Related Data Allergies/Adverse Reactions: bupropion [From Wellbutrin] Allergy (Verified 11/17/19 21:09) tree nut Allergy (Verified 07/01/19 18:06) PEANUT BUTTER Allergy (Uncoded 07/01/19 18:06) Home Medications: lithium, lamictal, propanolol Past Medical History - Social History Smoking Status: Current Every Day Smoker Family History: Reviewed & Not Pertinent Neurological Medical History: Reports: Hx Migraine - cluster cifuentes Renal/ Medical History: Denies: Hx Peritoneal Dialysis Psychiatric Medical History: Reports: Hx Bipolar Disorder, Hx Depression Past Surgical History: Reports: Hx Appendectomy Physical Exam - Vital signs Vitals: Temp Pulse Resp BP Pulse Ox 98.2 F 84 14 132/71 H 100 11/17/19 21:07 11/17/19 21:07 11/17/19 21:07 11/17/19 21:07 11/17/19 21:07 Course - Vital Signs Vital signs: Temp Pulse Resp BP Pulse Ox 98.2 F 84 14 132/71 H 100 11/17/19 21:07 11/17/19 21:07 11/17/19 21:07 11/17/19 21:07 11/17/19 21:07 Discharge - Discharge Clinical Impression: Person under investigation for COVID-19, Bronchitis, Tobacco use Condition: Stable Disposition: HOME, SELF-CARE Instructions: Bronchitis ([facility]) Additional Instructions: 1. take the medications as prescribed 2. if you were prescribed an Albuterol inhaler, use it as instructed, 2 puffs every 4 hours as needed for cough/wheezing 3. call your primary care provider as soon as possible to schedule recheck appt. in the office. 4. return to the ED for any worsening condition, shortness of breath or continued fever that does not resolve with Motrin/Tylenol 5. Stop smoking 6. You are considered a person under investigation at this time self quarantine at home until you have a negative COVID test these usually take 2 to 5 days and you will receive notification from the hospital about your result Prescriptions: Albuterol Sulfate [Proair HFA Inhalation Aerosol 8.5 gm MDI] 2 puff IH Q4H PRN #1 mdi PRN Reason: Azithromycin [Zithromax 250 mg Tablet] 250 mg PO ASDIR PRN #6 tablet PRN Reason: Forms: Return to Work Referrals: OLINDA LEAL MD [Primary Care Provider] - Follow up as needed
--- NOTE | 2019-11-17 22:00 | RADIOLOGY REPORT (SQ) ---
AP Portable chest: 11/17/2019 8:58 PM CDT History: 29-year old patient with cough. Comparison: Chest radiograph performed 06/09/2019. Findings: The cardiomediastinal silhouette is normal in size. No pneumothorax is seen. No acute airspace opacities are seen. No discrete pleural effusion is apparent. Impression: No acute airspace opacities are seen.
== END 2019-11-17 22:01 | disposition home or self-care (01) ==
LOC: ER 20:45
DX: J40 Bronchitis, not specified as acute or chronic (principal); R05 Cough; F17.210 Nicotine dependence, cigarettes, uncomplicated; Z79.899 Other long term (current) drug therapy; Z20.828 Contact with and (suspected) exposure to other viral communicable diseases; Z88.8 Allergy status to other drugs, medicaments and biological substances; Z91.018 Allergy to other foods
CPT/HCPCS: 99283; 87635; 71045; Q0144; C9803